=== PATIENT | male | born 1940 | race Caucasian/White ===

== ENCOUNTER 2017-04-20 14:00 | Emergency (ER) | payer OTHER ==
[~2017-04-20] VITALS: Ht 170.2 cm; Wt 101.0 kg
[~2017-04-20 14:00] MED LIST: ATOR-24 PO; CHOL100010 PO; CHOL20009 PO; CYCL10TA6 PO; FRRS300 PO; HYDC25 PO; OXYB5TAB74 PO; POTA1080 PO; PRT40 PO
[2017-04-20 14:15] VITALS: TEMP 36.6; Ht 170.2 cm; Wt 101.0 kg
[2017-04-20] MEDS ORDERED: MoRPHine SULFATE 10 MG/ML CARP/VIAL IM STA (14:27)
[2017-04-20] MEDS ORDERED: ONDANSETRON 4MG OD TAB PO STA (14:27)
[2017-04-20] MEDS ORDERED: DOXY50CA26 PO (14:41)
[2017-04-20] MEDS ORDERED: GLV/100 PO (14:41)
[2017-04-20] MEDS ORDERED: FURO-85 PO (14:41)
[2017-04-20] MEDS ORDERED: CETI10TA84 PO (14:41)
[2017-04-20] MEDS ORDERED: POTA540T PO (14:41)
[2017-04-20] MEDS ORDERED: HYDR25TA4 PO (14:41)
[2017-04-20] MEDS ORDERED: ASPI81TA28 PO (14:41)
[2017-04-20] MEDS ORDERED: CHOL1TAB76 PO (14:41)
[2017-04-20] MEDS ORDERED: CYAN100020 PO (14:42)
[2017-04-20] MEDS ORDERED: PRLSR20 PO (14:43)
[2017-04-20] MEDS ORDERED: FERR1TAB23 PO (14:44)
--- NOTE | 2017-04-20 15:03 | DIAGNOSTIC IMAGING REPORT ---
R WRIST MIN 3 VIEWS ROUTINE HISTORY: 76 years-old Male R wrist pain s/p fall acute right-sided wrist pain status post fall. COMPARISON: None available TECHNIQUE: 4 views of the right wrist FINDINGS: Acute comminuted slightly impacted fracture of the distal radius is noted with intra-articular extension into the radiocarpal and distal radioulnar joints. There is 7 mm dorsal displacement of the impacted fracture fragments and 3 mm volar displacement. Additionally, there is an acute comminuted nondisplaced fracture involving the ulnar styloid. Moderate soft tissue swelling about the wrist. Background osteopenia is noted with severe triscaphe and first carpometacarpal osteoarthritis. IMPRESSION: 1. Acute comminuted impacted and mildly displaced intra-articular fracture of the distal radius with moderate associated soft tissue swelling. 2. Acute comminuted nondisplaced fracture of the ulnar styloid. The above report was generated using voice recognition software. It may contain grammatical, syntax or spelling errors. Electronically signed by: Ayad Luna M.D. 04/20/2017 3:01 PM Dictated Date/Time: 04/20/2017 2:58 PM
--- NOTE | 2017-04-20 15:46 | DIAGNOSTIC IMAGING REPORT ---
RIGHT HUMERUS 2 VIEWS CLINICAL HISTORY: Fall with right arm pain. FINDINGS: AP and lateral views of the right humerus are obtained. No prior studies are available for comparison at the time of dictation. The skeletal structures are osteopenic. There is no radiographic evidence of right humeral fracture. The shoulder and elbow joints are grossly maintained. The overlying soft tissues are normal in appearance. A splint is noted in the partially imaged right forearm. IMPRESSION: Osteopenia with no radiographic evidence of right humeral fracture. Electronically signed by: Dustin Figueroa M.D. 04/20/2017 3:44 PM Dictated Date/Time: 04/20/2017 3:43 PM
--- NOTE | 2017-04-20 15:50 | EMERGENCY ROOM VISIT NOTE ---
ED Visit Note First contact with patient: 14:17 I did evaluate and examine this patient myself. I did guide management for the patient. I agree with the APC's assessment as discussed. Please see the APC's dictation for further details. I did independently review the x-rays. He does have a right wrist fracture. He is neurovascularly intact. He was placed in a splint and will follow with orthopedics.
[2017-04-20] MEDS ORDERED: OXYCODONE HCL IR 5 MG TAB (IMMEDIATE RELEASE) PO STA (15:58)
[2017-04-20] MEDS ORDERED: OXYC1TAB3 PO (16:07)
[2017-04-20 16:35] VITALS: BP 146/83; PULSE 57; O2SAT 99
--- NOTE | 2017-04-20 21:00 | EMERGENCY ROOM VISIT NOTE ---
History First contact with patient: 14:17 Chief Complaint: WRIST PAIN Stated Complaint: BROKEN WRIST History of Present Illness The patient is a 76 year old male who presents to the Emergency Room with complaints of right wrist pain and swelling, along with mild right shoulder pain. The patient reports that he was picking grapes when his left foot got tangled in a support post, causing him to lose his balance when he turned. The patient reports falling onto his right side. He complains mostly of right wrist pain and swelling. He does report mild right elbow and right shoulder pain, but does not want any further workup for these injuries. He denies hitting his head, neck pain or back pain. The patient rates his discomfort an 8 out of 10. The patient is [id number], and denies any prior history of right wrist fractures. Review of Systems 10 system review was performed and was negative except for pertinent positives and negatives as indicated in history of present illness Past Medical/Surgical History Medical Problems: (1) Calculus of ureter (2) Hx of prostatic malignancy (3) Hypertrophy (benign) of prostate (4) Symptomatic anemia Family History Cancer Hypertension Social History Smoking Status: Never Smoker Alcohol Use: none Drug Use: none Marital Status: Housing Status: lives with family Occupation Status: employed Current/Historical Medications Scheduled Aspirin (Aspirin Ec), 81 MG PO DAILY Atorvastatin (Lipitor), 40 MG PO DAILY Cetirizine (Zyrtec), 10 MG PO DAILY Cholecalciferol (D 2000), 2,000 UNITS PO DAILY Cyanocobalamin (Vitamin B12), 1,000 MCG PO DAILY Doxycycline (Monohydrate) (Doxycycline), 50 MG PO 2XWK Ferrous Sulfate (Iron), 325 MG PO DAILY Furosemide (Lasix), 20 MG PO DAILY Hydrochlorothiazide (Hctz), 25 MG PO DAILY Imatinib Mesylate (Gleevec), 400 MG PO DAILY Omeprazole (Prilosec), 20 MG PO DAILY Oxybutynin Chloride (Ditropan), 5 MG PO DAILY Potassium Citrate (Alkalinizer (Potassium Citrate), 1,080 MG PO DAILY Scheduled PRN Oxycodone Ir (Roxicodone Ir), 1-2 TAB PO Q4H PRN for Pain Physical Exam Vital Signs Date Time Temp Pulse Resp B/P (MAP) Pulse Ox O2 Delivery O2 Flow Rate FiO2 04/20/17 16:35 57 20 146/83 99 10/2/17 14:15 36.6 68 16 155/75 98 Room Air Physical Exam CONSTITUTIONAL: Healthy and well nourished. Alert and oriented X 3 with positive affect. Patient appears in moderate discomfort from pain. HEENT: Normocephalic, atraumatic. Pupils equal, round and reactive. No epistaxis, hemotympanum or subconjunctival hemorrhage. NECK: Full active range of motion without discomfort. RESPIRATORY: Clear to auscultation bilaterally with no wheezing, crackles, rhonchi or stridor. CARDIOVASCULAR: Regular rate and rhythm with no murmurs, rubs or gallops. MUSCULOSKELETAL: Examination shows edema of the volar wrist region. No open wounds noted. The patient has tenderness to palpation through the distal radius and ulnar region. He has no tenderness to palpation about the elbow, and has full flexion and extension without pain. Examination of the right shoulder does not show any focal tenderness over the distal clavicle, acromioclavicular joint or shoulder region. Distal pulses are intact. INTEGUMENTARY: No rash or other significant dermatologic conditions noted. NEUROLOGIC: Right hand and fingers are sensory intact. Medical Decision & Procedures ER Provider Diagnostic Interpretation: My interpretation of right wrist x-rays shows a comminuted and intra-articular distal radius fracture, with associated ulnar styloid fracture. Radiologist report is as follows: R WRIST MIN 3 VIEWS ROUTINE HISTORY: 76 years-old Male R wrist pain s/p fall acute right-sided wrist pain status post fall. COMPARISON: None available TECHNIQUE: 4 views of the right wrist FINDINGS: Acute comminuted slightly impacted fracture of the distal radius is noted with intra-articular extension into the radiocarpal and distal radioulnar joints. There is 7 mm dorsal displacement of the impacted fracture fragments and 3 mm volar displacement. Additionally, there is an acute comminuted nondisplaced fracture involving the ulnar styloid. Moderate soft tissue swelling about the wrist. Background osteopenia is noted with severe triscaphe and first carpometacarpal osteoarthritis. IMPRESSION: 1. Acute comminuted impacted and mildly displaced intra-articular fracture of the distal radius with moderate associated soft tissue swelling. 2. Acute comminuted nondisplaced fracture of the ulnar styloid. My interpretation of right humerus x-rays does not show any additional fractures or dislocations/subluxations about the shoulder or elbow region. Radiologist report is as follows: RIGHT HUMERUS 2 VIEWS CLINICAL HISTORY: Fall with right arm pain. FINDINGS: AP and lateral views of the right humerus are obtained. No prior studies are available for comparison at the time of dictation. The skeletal structures are osteopenic. There is no radiographic evidence of right humeral fracture. The shoulder and elbow joints are grossly maintained. The overlying soft tissues are normal in appearance. A splint is noted in the partially imaged right forearm. IMPRESSION: Osteopenia with no radiographic evidence of right humeral fracture. Medications Administered Medications (Trade) Dose Ordered Sig/Kay Route Start Time Stop Time Status Last Admin Dose Admin Morphine Sulfate (MoRPHine SULFATE INJ) 8 mg NOW STAT IM 04/20/17 14:27 04/20/17 14:28 DC 04/20/17 14:27 8 MG Ondansetron HCl (Zofran Odt) 4 mg NOW STAT PO 04/20/17 14:27 04/20/17 14:28 DC 04/20/17 14:27 4 MG Oxycodone HCl (Roxicodone Immediate Rel Tab) 5 mg NOW STAT PO 04/20/17 15:58 04/20/17 16:01 DC 04/20/17 16:30 5 MG ED Course Patient history and physical exam were performed. Nurse's notes were reviewed. Vital signs were reviewed and were normal. Patient was administered IM morphine and oral Zofran ODT for pain. X-rays of the right wrist shows a comminuted and intra-articular fracture of the distal radius, with associated nondisplaced comminuted fracture of the ulnar styloid. The patient still continued to complain of pain, but felt that his pain was secondary to movement of the arm. A volar Ortho-Glass splint was applied. Neurovascular check after splint placement was normal. The patient then requested an x-ray of his upper arm, which was also performed and was normal. An arm sling was applied. The patient was encouraged to intermittently apply ice and elevate the wrist for swelling and pain. He was encouraged to alternate ibuprofen and Tylenol for baseline pain relief. He did receive a prescription for OxyIR as needed for worse pain. He was warned about sedation and constipation while taking this medication. The patient and report that they will contact [facility] for further reevaluation and management. The patient voiced understanding of all discharge instructions, and rated his discomfort a 4 out of 10 at the conclusion of my exam. The patient was also seen and examined by Dr. Elmore, ED attending physician, who agrees with workup and plan of care. Medical Decision [place] Drug Monitoring Program Search Results: patient reviewed within database, no issues identified Medication Reconcilliation Current Medication List: was personally reviewed by me Blood Pressure Screening Patient's blood pressure: Normal blood pressure Impression Primary Impression: Closed fracture of right wrist Additional Impressions: Muscle strain of right upper arm Fall from slip, trip, or stumble Departure Information Prescriptions Oxycodone Ir (Roxicodone Ir) 5 Mg Tab 1-2 TAB PO Q4H Y for Pain, #15 TAB For Initial Treatment Prov: Arun Campo PA 04/20/17 Referrals Johnnie Le M.D. (PCP) Patient Instructions My [facility] Problem Qualifiers Primary Impression: Closed fracture of right wrist Encounter type: initial encounter Qualified Codes: S62.101A - Fracture of unspecified carpal bone, right wrist, initial encounter for closed fracture Additional Impressions: Muscle strain of right upper arm Encounter type: initial encounter Qualified Codes: S46.911A - Strain of unspecified muscle, fascia and tendon at shoulder and upper arm level, right arm , initial encounter Fall from slip, trip, or stumble Encounter type: initial encounter Qualified Codes: W01.0XXA - Fall on same level from slipping, tripping and stumbling without subsequent striking against object, initial encounter
== END 2017-04-20 16:35 | disposition home or self-care (01) ==
LOC: C.EDB 14:01 → C.EDD 16:35
DX: S52.571A Other intraarticular fracture of lower end of right radius, initial encounter for closed fracture (principal); S52.611A Displaced fracture of right ulna styloid process, initial encounter for closed fracture; S46.911A Strain of unspecified muscle, fascia and tendon at shoulder and upper arm level, right arm, initial encounter; W01.0XXA Fall on same level from slipping, tripping and stumbling without subsequent striking against object, initial encounter; Y93.89 Activity, other specified; Z87.442 Personal history of urinary calculi; Z85.46 Personal history of malignant neoplasm of prostate; N40.0 Benign prostatic hyperplasia without lower urinary tract symptoms; D64.9 Anemia, unspecified; Z80.9 Family history of malignant neoplasm, unspecified; Z82.49 Family history of ischemic heart disease and other diseases of the circulatory system; Z79.82 Long term (current) use of aspirin; Z79.899 Other long term (current) drug therapy

== ENCOUNTER 2019-07-08 01:01 | Inpatient (IN) ==
[2019-07-08] MEDS ORDERED: SODIUM CHLORIDE 0.9% 500 ML IV SCH (01:15)
[2019-07-08 01:31] LABS: Basophils # (auto) 0.01 K/uL (0-0.2); Basophils % (auto) 0.2 %; Eosinophils % (auto) 2.5 %; Hematocrit (blood only) 37.4 % (42-52); Hemoglobin 12.4 g/dL (14.0-18.0); Lymphocytes # (auto) 0.75 K/uL (1.2-3.4); Lymphocytes % (auto) 18.6 %; Mean Corpuscular Hgb Conc 33.2 g/dL (32-36); Mean Corpuscular Volume 99.5 fL (80-100); Mean Platelet Volume 9.7 fL (7.4-10.4); Monocytes # (auto) 0.38 K/uL (0.11-0.59); Monocytes % (auto) 9.4 %; Neutrophils # (auto) 2.79 K/uL (1.4-6.5); Neutrophils % (auto) 69.3 %; Platelet Count 237 K/uL (130-400); RDW Coefficient of Variation 13.9 % (11.5-14.5); RDW Standard Deviation 50.7 fL (36.4-46.3); Red Blood Count 3.76 M/uL (4.7-6.1); White Blood Count 4.03 K/uL (4.8-10.8)
[2019-07-08 01:32] LABS: iSTAT Creatinine 1.2 mg/dl (0.6-1.3); iSTAT Hemoglobin 12.6 g/dl (14.0-18.0); iSTAT Ionized Calcium 1.22 mmol/l (1.12-1.32); iSTAT Potassium 4.2 mEq/L (3.3-5.0)
[2019-07-08 01:54] LABS: Alanine Aminotransferase 34 U/L (12-78); Albumin Level 3.8 gm/dl (3.4-5.0); Aspartate Aminotransferase 28 U/L (15-37); BUN Creatinine Ratio 14.6 (10-20); Blood Urea Nitrogen 19 mg/dl (7-18); Calcium 8.7 mg/dl (8.5-10.1); Carbon Dioxide 28 mmol/L (21-32); Chloride 112 mmol/L (98-107); Creatinine Clr Calc Pharmacy 51.8 ml/min; Est GFR (African American) 60.7; Est GFR (Non-African American) 52.4; Glucose 103 mg/dl (70-99); Magnesium 2.2 mg/dl (1.8-2.4); Potassium 4.2 mmol/L (3.5-5.1); Sodium 141 mmol/L (136-145)
[2019-07-08 01:59] LABS: Albumin Globulin Ratio 1.1 (0.9-2); Alkaline Phosphatase 89 U/L (45-117); Bilirubin,Total 0.3 mg/dl (0.2-1); Globulin 3.5 gm/dl (2.5-4.0); Total Protein 7.3 gm/dl (6.4-8.2)
--- NOTE | 2019-07-08 02:06 | Emergency Department Note ---
Entered by Taqueria Cain acting as a scribe for Jake Kennedy DO History of Present Illness General Chief complaint: Dizziness Stated complaint: DIZZY,PASSED OUT Time Seen by Provider: 07/08/19 01:14 Source: patient History of Present Illness Onset (ago): hour(s) (3.5) Location: head Pain Consistency: + other (episode) Quality: + other (possible syncope episode) Associated symptoms: + shortness of breath and + other (+bump on right jainism; +lightheadedness -weakness; -numbness; -changes in vision ) The patient is a 79 year old female, with past medical history of anemia, who presents to the Emergency Room with complaints of an episode of a possible syncope that occurred 3.5 hours ago. The patient reports he was sitting on a chair when the patient thinks he may have gotten up too fast. He states he either lost his balance or passed out upon standing up, but the patient can not remember specifically. The patient notes he hit his right jainism due to the fall. He notes he only lost consciousness for a couple seconds. The patient states he felt lightheaded prior to the possible syncope episode, and he states he felt lightheaded afterwards as well. The patient also notes he has felt short of breath. The patient denies change in vision, weakness or numbness. He notes he recently started taking eye drops. The patient reports he takes aspirin, but he denies taking any other blood thinners. Home Medications Home Medications Medication Instructions Recorded Confirmed Type S/P Cataract Surgery Eye Drops 1 drp OPB DAILY 07/08/19 07/08/19 History aspirin 81 mg PO DAILY 07/08/19 07/08/19 History atorvastatin 40 mg PO DAILY 07/08/19 07/08/19 History cholecalciferol (vitamin D3) 2,000 unit PO DAILY 07/08/19 07/08/19 History [Vitamin D3] cyanocobalamin (vitamin B-12) 1,000 mcg PO DAILY 07/08/19 07/08/19 History furosemide 20 mg PO DAILY 07/08/19 07/08/19 History imatinib 400 mg PO . ON HOLD 07/08/19 07/08/19 History ketoconazole 1 applic TOPICAL [id number] 07/08/19 07/08/19 History omeprazole 20 mg PO DAILY 07/08/19 07/08/19 History potassium citrate 1,080 mg PO DAILY 07/08/19 07/08/19 History Allergies Allergy/AdvReac Type Severity Reaction Status Date / Time No Known Allergies Allergy Unverified 07/08/19 02:11 Past Med/Surg History Medical History Anemia (Acute) Calculus of ureter Closed fracture of right wrist (Acute) Fall from slip, trip, or stumble (Acute) Hx of prostatic malignancy Hypertrophy (benign) of prostate Muscle strain of right upper arm (Acute) Symptomatic anemia Family History Other No significant family history Social History Preferred Language: Pashto Communication Ability: Effective Special Equipment Technician Required: No Beliefs That Will Affect Care: None Current Living Situation: Spouse Feels Safe at Home: Yes Safety Concerns: Feels Safe At This Time Smoking Status: Former smoker Hx Alcohol Use: Yes Alcohol type: beer Hx Substance Use: No Review of Systems See HPI for pertinent positives & negatives. and A total of 10 systems reviewed and were otherwise negative Physical Exam Vital Signs Vital Signs - 24 hr 07/08/19 01:03 07/08/19 01:36 07/08/19 01:45 Temperature 36.7 C Temperature Source Oral Pulse Rate 38 L Pulse Rate [Finger] 34 L 35 L Respiratory Rate 16 20 18 Respiratory Effort / Characteristics Non-Labored Spontaneous Respiratory Depth Normal Blood Pressure 142/61 H Blood Pressure [Right Arm] 132/52 L 128/56 L Blood Pressure Mean 88 Blood Pressure Mean [Right Arm] 78 80 Pulse Oximetry 97 97 98 Oxygen Delivery Method Room Air Room Air Room Air Sepsis Recent Fever Within 48 Hours No Sepsis Action Taken by Nursing No Action Required 07/08/19 02:00 07/08/19 02:30 Temperature Temperature Source Pulse Rate Pulse Rate [Finger] 32 L 32 L Respiratory Rate 18 18 Respiratory Effort / Characteristics Respiratory Depth Blood Pressure Blood Pressure [Right Arm] 121/54 L 134/54 L Blood Pressure Mean Blood Pressure Mean [Right Arm] 76 80 Pulse Oximetry 98 98 Oxygen Delivery Method Room Air Room Air Sepsis Recent Fever Within 48 Hours Sepsis Action Taken by Nursing GENERAL: laying in bed, ill-appearing, disheveled EYE EXAM: normal conjunctiva, PERRL and EOM's intact OROPHARYNX: no exudate, no erythema, lips, buccal mucosa, and tongue normal and mucous membranes are moist NECK: supple, no nuchal rigidity, no adenopathy, non-tender LUNGS: Clear to auscultation. Normal chest wall mechanics HEART: Bradycardic rate. No murmurs, S1 normal and S2 normal ABDOMEN: abdomen soft, non-tender, normo-active bowel sounds, no masses, no rebound or guarding. BACK: Back is symmetrical on inspection and there is no deformity, no midline tenderness, no CVA tenderness. SKIN: no rashes and no bruising UPPER EXTREMITIES: upper extremities are grossly normal. LOWER EXTREMITIES: No pitting edema. NEURO EXAM: Normal sensorium, cranial nerves II-XII intact, normal speech, no weakness of arms, no weakness of legs. No drift. Finger to nose intact. Gross sensation intact. Course Course ED COURSE: Vital signs were reviewed and showed hypertensive and bradycardia. The patients medical record was reviewed The above diagnostic studies were performed and reviewed. ED treatments and interventions as stated above. 0110: The patient was evaluated in room B1. A complete history and physical exam ination was performed. 0146: I discussed the patient's case with Dr. العلي-Lois Waldron. Dr. العلي will further evaluate the patient. 0150: I updated the patient on his case. The patient reports he is doing well. Based on the patients age, coexisting illnesses, exam and lab findings the decision to treat as an inpatient was made. The patient remained stable while under my care. The patient will be evaluated for further management. Consultations Consultation #1: I discussed the patient's case with Dr. العلي-Lois Waldron. Dr. العلي will further evaluate the patient. Time: 01:46 Administered Medications Aspirin (Ecotrin Ectab) 81 mg PO DAILY [facility] Stop: 08/07/19 08:59 Last Admin: 07/08/19 08:32 Dose: 81 mg Documented by: [id number] Atorvastatin Calcium (Lipitor) 40 mg PO DAILY [facility] Stop: 08/07/19 08:59 Last Admin: 07/08/19 08:33 Dose: 40 mg Documented by: [id number] Cyanocobalamin (Vitamin B-12) 1,000 mcg PO DAILY [facility] Stop: 08/07/19 08:59 Last Admin: 07/08/19 08:33 Dose: 1,000 mcg Documented by: [id number] Lisinopril (Zestril) 2.5 mg PO QAM [facility] Stop: 08/07/19 04:24 Last Admin: 07/08/19 04:41 Dose: 2.5 mg Documented by: [id number] Miscellaneous (Order Awaiting Action) 1 ea N/A QS [facility] Stop: 08/07/19 04:29 Last Admin: 07/08/19 17:33 Dose: Not Given Documented by: [id number] Admin: 07/08/19 08:32 Dose: Not Given Documented by: [id number] Admin: 07/08/19 04:35 Dose: Not Given Documented by: [id number] Pantoprazole Sodium (Protonix) 40 mg PO DAILY [facility] Stop: 08/07/19 08:59 Last Admin: 07/08/19 08:33 Dose: 40 mg Documented by: [id number] Discontinued Medications Bacitracin (Bacitracin) Confirm Administered Dose 50,000 units .ROUTE .STK-MED ONE Stop: 07/08/19 13:38 Last Admin: 07/08/19 14:33 Dose: 50,000 units Documented by: [id number] Bupivacaine HCl (Sensorcaine 0.25% Inj) Confirm Administered Dose 30 ml .ROUTE .STK-MED ONE Stop: 07/08/19 13:37 Last Admin: 07/08/19 14:33 Dose: 30 ml Documented by: [id number] Cefazolin Sodium (Ancef) Confirm Administered Dose 2,000 mg .ROUTE .STK-MED ONE Stop: 07/08/19 13:59 Last Admin: 07/08/19 14:33 Dose: 2,000 mg Documented by: [id number] Fentanyl Citrate (Fentanyl Citrate) Confirm Administered Dose 100 mcg .ROUTE .STK-MED ONE Stop: 07/08/19 13:58 Last Admin: 07/08/19 15:35 Dose: 100 mcg Documented by: [id number] Fentanyl Citrate (Fentanyl Citrate) Confirm Administered Dose 100 mcg .ROUTE .STK-MED ONE Stop: 07/08/19 15:57 Last Increment: 07/08/19 16:31 Dose: 50 mcg Documented by: [id number] Hydralazine HCl (Hydralazine Hcl) Confirm Administered Dose 20 mg .ROUTE .STK- MED ONE Stop: 07/08/19 15:07 Last Admin: 07/08/19 15:17 Dose: 20 mg Documented by: [id number] Sodium Chloride (Nss) 500 mls @ 999 mls/hr IV .Q31M [facility] Stop: 07/08/19 01:45 Last Infusion: 07/08/19 02:05 Dose: 0 mls/hr Documented by: [id number] Admin: 07/08/19 01:34 Dose: 999 mls/hr Documented by: [id number] Sodium Chloride (1/2 Nss) 1,000 mls @ 50 mls/hr IV .Q20H [facility] Stop: 08/07/19 03:45 Last Infusion: 07/08/19 17:34 Dose: 0 mls/hr Documented by: [id number] Admin: 07/08/19 04:34 Dose: 50 mls/hr Documented by: [id number] Cefazolin Sodium (Ancef 2000mg) 2,000 mg in 15 mls @ 3.75 mls/min IV Q8 ONE Stop: 07/08/19 20:03 Last Admin: 07/08/19 20:22 Dose: 3.75 mls/min Documented by: [id number] Lidocaine HCl (Xylocaine 1% (Local)) Confirm Administered Dose 20 ml .ROUTE .STK-MED ONE Stop: 07/08/19 13:37 Last Admin: 07/08/19 14:33 Dose: 20 ml Documented by: [id number] Lorazepam (Ativan) 0.25 mg PO NOW STA Stop: 07/08/19 05:00 Last Admin: 07/08/19 08:55 Dose: Not Given Documented by: [id number] Midazolam HCl (Versed) Confirm Administered Dose 5 mg .ROUTE .STK-MED ONE Stop: 07/08/19 13:58 Last Admin: 07/08/19 16:31 Dose: 5 mg Documented by: [id number] Midazolam HCl (Versed) Confirm Administered Dose 2 mg .ROUTE .STK-MED ONE Stop: 07/08/19 16:22 Last Admin: 07/08/19 16:32 Dose: Not Given Documented by: [id number] Perflutren Lipid Microsphere (Definity) 2 ml IV ONCE ONE Stop: 07/08/19 07:09 Last Admin: 07/08/19 07:09 Dose: 2 ml Documented by: [id number] Sterile Water (Sterile Water Inj) Confirm Administered Dose 20 ml .ROUTE .StockTwits- MED ONE Stop: 07/08/19 13:59 Last Admin: 07/08/19 14:33 Dose: 20 ml Documented by: [id number] Critical Care Time Critical Care Time: Yes Total Critical Care Time: 35 I have personally spent 35 minutes of critical care time in the direct management of this patient. This includes bedside care, interpretation of diagnostic studies, and testing, discussion with consultants, patient, and family members, and other required patient management activities. This 35 minutes is in excess of all separately billable procedures. Medical Decision Making Differential Diagnosis Differential diagnosis includes etiologies such as vasovagal event, infection, hypoglycemia, electrolyte abnormalities, cardiac sources, intracerebral event, toxicologic, neurologic, Mobitz Type 2 block, as well as others were entertained. Medical Records Attestation: I reviewed the patient's medical records. Home Medications Current Medication List: was personally reviewed by me Laboratory Data Attestation: I reviewed the patient's lab results. Result diagrams: 07/08/19 01:17 07/08/19 01:17 Lab Results 07/08/19 07/08/19 07/08/19 Range/Units 01:16 01:17 01:17 WBC 4.03 L (4.8-10.8) K/uL RBC 3.76 L (4.7-6.1) M/uL Hgb 12.4 L (14.0-18.0) g/dL POC Hgb 12.6 L (14.0-18.0) g/dl Hct 37.4 L (42-52) % POC Hct 37 L (42-52) % MCV 99.5 (80-100) fL MCH 33.0 (25-34) pg MCHC 33.2 (32-36) g/dL RDW Std Deviation 50.7 H (36.4-46.3) fL RDW Coeff of Gila 13.9 (11.5-14.5) % Plt Count 237 (130-400) K/uL MPV 9.7 (7.4-10.4) fL Immature Gran % (Auto) 0.0 % Neut % (Auto) 69.3 % Lymph % (Auto) 18.6 % [place] % (Auto) 9.4 % Eos % (Auto) 2.5 % Baso % (Auto) 0.2 % Immature Gran # (Auto) 0.00 (0.00-0.02) K/uL Neut # (Auto) 2.79 (1.4-6.5) K/uL Lymph # (Auto) 0.75 L (1.2-3.4) K/uL [place] # (Auto) 0.38 (0.11-0.59) K/uL Eos # (Auto) 0.10 (0-0.5) K/uL Baso # (Auto) 0.01 (0-0.2) K/uL POC Sodium 142 (135-144) mEq/L Sodium 141 (136-145) mmol/L POC Potassium 4.2 (3.3-5.0) mEq/L Potassium 4.2 (3.5-5.1) mmol/L POC Chloride 109 (101-112) mEq/L Chloride 112 H (98-107) mmol/L Carbon Dioxide 28 (21-32) mmol/L POC Total CO2 24 (24-31) mEq/l Anion Gap 1.0 L (3-11) POC Anion Gap 15.0 L (16-25) mmol/L POC BUN 18 (7-18) mg/dl BUN 19 H (7-18) mg/dl Creatinine 1.29 (0.6-1.4) mg/dl POC Creatinine 1.2 (0.6-1.3) mg/dl Est Cr Clr Drug Dosing 51.8 ml/min Est GFR ( Amer) 60.7 Est GFR (Non-Af Amer) 52.4 BUN/Creatinine Ratio 14.6 (10-20) Glucose 103 H (70-99) mg/dl POC Glucose (other) 103 H (70-99) mg/dl Calcium 8.7 (8.5-10.1) mg/dl POC Ioniz Calcium Irma 1.22 (1.12-1.32) mmol/l Magnesium 2.2 (1.8-2.4) mg/dl Total Bilirubin 0.3 (0.2-1) mg/dl AST 28 (15-37) U/L ALT 34 (12-78) U/L Alkaline Phosphatase 89 (45-117) U/L Troponin I < 0.015 (0-0.045) ng/ml NT-Pro-B Natriuret Pep 121 (0-1800) pg/ml Total Protein 7.3 (6.4-8.2) gm/dl Albumin 3.8 (3.4-5.0) gm/dl Globulin 3.5 (2.5-4.0) gm/dl Albumin/Globulin Ratio 1.1 (0.9-2) TSH 2.520 (0.300-4.500) uIu/ml Urine Color Urine Appearance (Clear) Urine pH (4.5-7.5) Ur Specific Melvin (1.000-1.030) Urine Protein (Negative) Urine Glucose (UA) (Negative) Urine Ketones (Negative) Urine Blood (Negative) Urine Nitrite (Negative) Urine Bilirubin (Negative) Urine Urobilinogen (Negative) Ur Leukocyte Esterase (Negative) Urine WBC (Auto) (0-5) /hpf Urine RBC (Auto) (0-4) /hpf U Hyaline Cast (Auto) (0-5) /lpf U Epithel Cells (Auto) (0-5) /lpf Urine Bacteria (Auto) (Negative) Lyme Disease IgG Ab (Negative) Lyme Disease IgM Ab (Negative) 07/08/19 07/08/19 Range/Units 01:17 03:00 WBC (4.8-10.8) K/uL RBC (4.7-6.1) M/uL Hgb (14.0-18.0) g/dL POC Hgb (14.0-18.0) g/dl Hct (42-52) % POC Hct (42-52) % MCV (80-100) fL MCH (25-34) pg MCHC (32-36) g/dL RDW Std Deviation (36.4-46.3) fL RDW Coeff of Gila (11.5-14.5) % Plt Count (130-400) K/uL MPV (7.4-10.4) fL Immature Gran % (Auto) % Neut % (Auto) % Lymph % (Auto) % [place] % (Auto) % Eos % (Auto) % Baso % (Auto) % Immature Gran # (Auto) (0.00-0.02) K/uL Neut # (Auto) (1.4-6.5) K/uL Lymph # (Auto) (1.2-3.4) K/uL [place] # (Auto) (0.11-0.59) K/uL Eos # (Auto) (0-0.5) K/uL Baso # (Auto) (0-0.2) K/uL POC Sodium (135-144) mEq/L Sodium (136-145) mmol/L POC Potassium (3.3-5.0) mEq/L Potassium (3.5-5.1) mmol/L POC Chloride (101-112) mEq/L Chloride (98-107) mmol/L Carbon Dioxide (21-32) mmol/L POC Total CO2 (24-31) mEq/l Anion Gap (3-11) POC Anion Gap (16-25) mmol/L POC BUN (7-18) mg/dl BUN (7-18) mg/dl Creatinine (0.6-1.4) mg/dl POC Creatinine (0.6-1.3) mg/dl Est Cr Clr Drug Dosing ml/min Est GFR ( Amer) Est GFR (Non-Af Amer) BUN/Creatinine Ratio (10-20) Glucose (70-99) mg/dl POC Glucose (other) (70-99) mg/dl Calcium (8.5-10.1) mg/dl POC Ioniz Calcium Irma (1.12-1.32) mmol/l Magnesium (1.8-2.4) mg/dl Total Bilirubin (0.2-1) mg/dl AST (15-37) U/L ALT (12-78) U/L Alkaline Phosphatase (45-117) U/L Troponin I (0-0.045) ng/ml NT-Pro-B Natriuret Pep (0-1800) pg/ml Total Protein (6.4-8.2) gm/dl Albumin (3.4-5.0) gm/dl Globulin (2.5-4.0) gm/dl Albumin/Globulin Ratio (0.9-2) TSH (0.300-4.500) uIu/ml Urine Color Yellow Urine Appearance Clear (Clear) Urine pH 5.5 (4.5-7.5) Ur Specific Melvin 1.019 (1.000-1.030) Urine Protein 1+ H (Negative) Urine Glucose (UA) Negative (Negative) Urine Ketones Trace H (Negative) Urine Blood Negative (Negative) Urine Nitrite Negative (Negative) Urine Bilirubin Negative (Negative) Urine Urobilinogen Negative (Negative) Ur Leukocyte Esterase Negative (Negative) Urine WBC (Auto) 1-5 (0-5) /hpf Urine RBC (Auto) 0-4 (0-4) /hpf U Hyaline Cast (Auto) 1-5 (0-5) /lpf U Epithel Cells (Auto) 5-10 H (0-5) /lpf Urine Bacteria (Auto) Negative (Negative) Lyme Disease IgG Ab Negative (Negative) Lyme Disease IgM Ab Negative (Negative) Imaging Data My Impression: HEAD CT NONCONTRAST CT DOSE: 655.73 mGy.cm HISTORY: syncope TECHNIQUE: Multiaxial CT images of the head were performed without the use of intravenous contrast. Automated exposure control was utilized for this study. A dose lowering technique was utilized adhering to the principles of ALARA. Comparison: None. Findings: Dense opacification of the right frontal sinus and right f rontoethmoidal recess. Small right mastoid effusion. The calvarium and skull base are intact. There is no mass, hematoma, midline shift, acute infarct. White matter hypodensity is nonspecific but suggestive of microvascular ischemic change. The ventricles and sulci demonstrate mild age-related involutional changes. Impression: 1. No acute intracranial abnormality. 2. 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 Electronically signed by: Steffen Ly M.D. 07/08/2019 7:06 AM Portable AP Upright 1 View: Large cardiac silhouette. No focal infiltrate. No pneumothorax. Linear line just lateral to right mediastinum consistent with pacer pad. CT head/brain w/o contrast: No acute bleed. ECG Data Attestation: I personally reviewed and interpreted this ECG as follows: Indication: + syncope Rate (beats per minute): 34 Rhythm: + sinus bradycardia ECG Intervals/blocks: + Mobitz Type II and + Right Bundle branch block ECG [place]: + Left axis deviation ECG ST segments: + T-wave inversions (Inferior) and + Nonspecific ST abnormalities (lateral) Blood Pressure Blood Pressure Findings: Elevated blood pressure Blood Pressure Disposition: further management by hospitalist Head Trauma GCS Score: 15 MDM Narrative Patient is a 79-year-old male who presents the ER following a syncopal episode. He notes he felt dizzy and lightheaded since about 10 PM last night. He has no weakness or numbness in his arms or legs. He had a syncopal episode while getting up and passed out. He notes he was out for several seconds. He does have some exertional shortness of breath as well. He notes he takes no rate limiting medications. IV was established blood work was obtained. I was called emergently to B 1/trauma bay. Upon arrival he was found to be bradycardic with a heart rate in the low 30s. Cardiac monitoring/rhythm strip was reviewed and showed Mobitz 2 heart rate of 31. Trop neg. Labs show mild leukopenia. No significant anemia. BMP along with LFTs bilirubin was unremarkable. Patient was taking the CT, CT of his head was negative per my read. No cervical spine tenderness. Chest x-ray is not significantly changed from previous and per my interpretation showed a large cardiac silhouette but no focal infiltrate. Patient was given a small bolus of IV fluids. Defibrillator pads were placed and he was monitored closely throughout the stay in the ER. He was discussed with the hospitalist and patient family were updated bedside. He will be admitted to the ER with bradycardia secondary to Mobitz 2 heart block symptomatic with syncope and dizziness. Impression & Plan AV block, Mobitz II, Anemia, Cardiac syncope, Bradycardia with 31-40 beats per minute Discharge Plan Visit Data *Final* Discharge Date/Time: 07/08/19 03:19 Chief Complaint: Dizziness Stated Complaint: DIZZY,PASSED OUT ED Provider: Jake Kennedy Discharge Problem: AV block, Mobitz II, Anemia, Cardiac syncope, Bradycardia with 31-40 beats per minute Patient Disposition: Admitted As Inpatient Discharge Instructions Interventions: ED Discharge Assessment Last Done: 07/08/19 03:19 Discharge Problem: Anemia Qualifiers: Anemia type: unspecified type Qualified Code(s): D64.9 - Anemia, unspecified The scribe's documentation has been prepared under my direction and personally reviewed by me in its entirety. I confirm that the note above accurately reflects all work, treatment, procedures, and medical decision making performed by me.
[2019-07-08 02:09] LABS: NT Pro B Type Natriuretic Pept 121 pg/ml (0-1800); Troponin I < 0.015 ng/ml (0-0.045)
--- NOTE | 2019-07-08 03:00 | History & Physical Report ---
Date of Service July 08, 2019 Assessment & Plan (1) Symptomatic bradycardia: hypertension, slight elevated malignant GIST status surgery, Gleevec tx currently on hold after recent cataract surgery prostate cancer sp radiation chronic anemia, hemoglobin at baseline Past tobacco abuse PCU External pacer pads on TTE, Cardiology consult RE symptomatic bradycardia Monitor blood pressure, initiate lisinopril if uncontrolled DVT prophylaxis. Lovenox subcu Full code Patient's requesting updates from providers. Ms. aHley White, contact #[phone]. History of Present Illness Chief Complaint: Passed out Primary Care Provider: Johnnie Le MD History obtained from patient, family, and records. 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 Recent confinement June 2015 for symptomatic anemia. Last night patient noted dizziness symptoms described as lightheadedness which led to transient Blackout episode causing patient to fall down. Was not out for long as per patient. Some head trauma post fall. No chest pain. Some shortness of breath. No cough symptoms. Noted to have second-degree AV block Mobitz type II on the monitor. MEDICAL HISTORY: As above. SURGERIES: Urologic procedures, orthopedic surgery, partial laparoscopic gastrectomy, recent cataract surgery FAMILY HISTORY: Dementia, breast cancer, hypertension, stroke PERSONAL AND SOCIAL HISTORY: Past tobacco abuse. No chronic intake of alcoholic beverages. Retired store warehouse associate. Allergies Allergy/AdvReac Type Severity Reaction Status Date / Time No Known Allergies Allergy Unverified 07/08/19 02:11 Home Medications Home Medications Medication Instructions Recorded Confirmed Type S/P Cataract Surgery Eye Drops 1 drp OPB DAILY 07/08/19 07/08/19 History aspirin 81 mg PO DAILY 07/08/19 07/08/19 History atorvastatin 40 mg PO DAILY 07/08/19 07/08/19 History cholecalciferol (vitamin D3) 2,000 unit PO DAILY 07/08/19 07/08/19 History [Vitamin D3] cyanocobalamin (vitamin B-12) 1,000 mcg PO DAILY 07/08/19 07/08/19 History furosemide 20 mg PO DAILY 07/08/19 07/08/19 History imatinib 400 mg PO . ON HOLD 07/08/19 07/08/19 History ketoconazole 1 applic TOPICAL 3XWK 07/08/19 07/08/19 History omeprazole 20 mg PO DAILY 07/08/19 07/08/19 History potassium citrate 1,080 mg PO DAILY 07/08/19 07/08/19 History Past Med/Surg History Medical History Anemia (Acute) Calculus of ureter Closed fracture of right wrist (Acute) Fall from slip, trip, or stumble (Acute) Hx of prostatic malignancy Hypertrophy (benign) of prostate Muscle strain of right upper arm (Acute) Symptomatic anemia Family History Other No significant family history Social History Preferred Language: Cameroonian Communication Ability: Effective Digital Archivist Required: No Beliefs That Will Affect Care: None Current Living Situation: Spouse Feels Safe at Home: Yes Safety Concerns: Feels Safe At This Time Smoking Status: Former smoker Hx Alcohol Use: Yes Alcohol type: beer Hx Substance Use: No Review of Systems Review of Systems: As per HPI, all 10 systems reviewed, all other ROS negative Physical Exam Physical Exam: GENERAL: Comfortable, obese, slightly anxious, no respiratory distress SKIN: Pallor , warm HEENT: Pale palpebral conjunctivae, no ptosis, dry buccal mucosa NECK : Supple, short neck, no tenderness CHEST : CTA, no tenderness HEART : Bradycardic , no obvious murmurs ABDOMEN: Some distention, nontender EXTREMITIES : No LE swelling/tenderness, no other conspicuous deformities noted NEUROLOGIC : Coherent, no facial asymmetry, no other gross focality Results & Data Vital Signs (Past 12 Hours) Vital Signs Temp Pulse Pulse Resp BP BP Pulse Ox 07/08/19 02:30 32 L 18 134/54 L 98 07/08/19 02:00 32 L 18 121/54 L 98 07/08/19 01:45 35 L 18 128/56 L 98 07/08/19 01:36 34 L 20 132/52 L 97 07/08/19 01:03 36.7 C 38 L 16 142/61 H 97 Laboratory Results Laboratory Results WBC 4.03 K/uL (4.8-10.8) L 07/08/19 01:17 RBC 3.76 M/uL (4.7-6.1) L 07/08/19 01:17 Hgb 12.4 g/dL (14.0-18.0) L 07/08/19 01:17 POC Hgb 12.6 g/dl (14.0-18.0) L 07/08/19 01:16 Hct 37.4 % (42-52) L 07/08/19 01:17 POC Hct 37 % (42-52) L 07/08/19 01:16 MCV 99.5 fL (80-100) 07/08/19 01:17 MCH 33.0 pg (25-34) 07/08/19 01:17 MCHC 33.2 g/dL (32-36) 07/08/19 01:17 RDW Std Deviation 50.7 fL (36.4-46.3) H 07/08/19 01:17 RDW Coeff of Gila 13.9 % (11.5-14.5) 07/08/19 01:17 Plt Count 237 K/uL (130-400) 07/08/19 01:17 MPV 9.7 fL (7.4-10.4) 07/08/19 01:17 Immature Gran % (Auto) 0.0 % 07/08/19 01:17 Neut % (Auto) 69.3 % 07/08/19 01:17 Lymph % (Auto) 18.6 % 07/08/19 01:17 [place] % (Auto) 9.4 % 07/08/19 01:17 Eos % (Auto) 2.5 % 07/08/19 01:17 Baso % (Auto) 0.2 % 07/08/19 01:17 Immature Gran # (Auto) 0.00 K/uL (0.00-0.02) 07/08/19 01:17 Neut # (Auto) 2.79 K/uL (1.4-6.5) 07/08/19 01:17 Lymph # (Auto) 0.75 K/uL (1.2-3.4) L 07/08/19 01:17 [place] # (Auto) 0.38 K/uL (0.11-0.59) 07/08/19 01:17 Eos # (Auto) 0.10 K/uL (0-0.5) 07/08/19 01:17 Baso # (Auto) 0.01 K/uL (0-0.2) 07/08/19 01:17 POC Sodium 142 mEq/L (135-144) 07/08/19 01:16 Sodium 141 mmol/L (136-145) 07/08/19 01:17 POC Potassium 4.2 mEq/L (3.3-5.0) 07/08/19 01:16 Potassium 4.2 mmol/L (3.5-5.1) 07/08/19 01:17 POC Chloride 109 mEq/L (101-112) 07/08/19 01:16 Chloride 112 mmol/L (98-107) H 07/08/19 01:17 Carbon Dioxide 28 mmol/L (21-32) 07/08/19 01:17 POC Total CO2 24 mEq/l (24-31) 07/08/19 01:16 Anion Gap 1.0 (3-11) L 07/08/19 01:17 POC Anion Gap 15.0 mmol/L (16-25) L 07/08/19 01:16 POC BUN 18 mg/dl (7-18) 07/08/19 01:16 BUN 19 mg/dl (7-18) H 07/08/19 01:17 Creatinine 1.29 mg/dl (0.6-1.4) 07/08/19 01:17 POC Creatinine 1.2 mg/dl (0.6-1.3) 07/08/19 01:16 Est Cr Clr Drug Dosing 51.8 ml/min 07/08/19 01:17 Est GFR ( Amer) 60.7 07/08/19 01:17 Est GFR (Non-Af Amer) 52.4 07/08/19 01:17 BUN/Creatinine Ratio 14.6 (10-20) 07/08/19 01:17 Glucose 103 mg/dl (70-99) H 07/08/19 01:17 POC Glucose (other) 103 mg/dl (70-99) H 07/08/19 01:16 Calcium 8.7 mg/dl (8.5-10.1) 07/08/19 01:17 POC Ioniz Calcium Irma 1.22 mmol/l (1.12-1.32) 07/08/19 01:16 Magnesium 2.2 mg/dl (1.8-2.4) 07/08/19 01:17 Total Bilirubin 0.3 mg/dl (0.2-1) 07/08/19 01:17 AST 28 U/L (15-37) 07/08/19 01:17 ALT 34 U/L (12-78) 07/08/19 01:17 Alkaline Phosphatase 89 U/L (45-117) 07/08/19 01:17 Troponin I < 0.015 ng/ml (0-0.045) 07/08/19 01:17 NT-Pro-B Natriuret Pep 121 pg/ml (0-1800) 07/08/19 01:17 Total Protein 7.3 gm/dl (6.4-8.2) 07/08/19 01:17 Albumin 3.8 gm/dl (3.4-5.0) 07/08/19 01:17 Globulin 3.5 gm/dl (2.5-4.0) 07/08/19 01:17 Albumin/Globulin Ratio 1.1 (0.9-2) 07/08/19 01:17 TSH 2.520 uIu/ml (0.300-4.500) 07/08/19 01:[address] head initial read: No acute intracranial process. Volume loss and chronic microvascular ischemic changes. Chronic right frontal sinus. Small right mastoid effusion. Chest x-ray as per my dictation cardiomegaly, interstitial congestion EKG as per my interpretation : Rate 35, 2AVB Mobitz type II, RBBB, LAD, LAFB, T wave flattening anterolateral leads
[2019-07-08 03:20] LABS: Appearance Urine Clear (Clear); Bacteria Urine Automated Negative (Negative); Bilirubin Urine Negative (Negative); Blood Urine Negative (Negative); Color Urine Yellow; Glucose Urine UA Negative (Negative); Ketones Urine Trace (Negative); Leukocyte Esterase Urine Negative (Negative); Nitrite Urine Negative (Negative); Protein Urine 1+ (Negative); RBC Urine Automated 0-4 /hpf (0-4); Specific Gravity Urine 1.019 (1.000-1.030); Urobilinogen Urine Negative (Negative); pH Urine 5.5 (4.5-7.5)
[2019-07-08 03:46] LABS: Lyme Ab IgG w/WB Rflx Negative (Negative); Lyme Ab IgM w/WB Rflx Negative (Negative)
[2019-07-08] MEDS ORDERED: ACETAMINOPHEN 325 MG TAB PO PRN ×2 (03:46→16:45)
[2019-07-08] MEDS ORDERED: PROMETHAZINE HCL 12.5 MG in SODIUM CHLORIDE 0.9% 50 ML IV PRN (03:46)
[2019-07-08] MEDS ORDERED: NITROGLYCERIN SL 0.4 MG/TAB TAB SL PRN (03:46)
[2019-07-08] MEDS ORDERED: TRAMADOL HCL 50 MG TABLET PO PRN (03:46)
[2019-07-08] MEDS ORDERED: SODIUM CHLORIDE 0.45 % 1,000 ML IV SCH (03:46)
[2019-07-08] MEDS ORDERED: LORazepam 0.5 MG TAB PO STA (04:59)
[2019-07-08] MEDS ORDERED: ATROPINE SULFATE 0.1 MG/ML 5ML SYR IV PRN (07:07)
--- NOTE | 2019-07-08 07:07 | CT Scan Report ---
HEAD CT NONCONTRAST CT DOSE: 655.73 mGy.cm HISTORY: syncope TECHNIQUE: Multiaxial CT images of the head were performed without the use of intravenous contrast. A utomated exposure control was utilized for this study. A dose lowering technique was utilized adheri ng to the principles of ALARA. Comparison: None. Findings: Dense opacification of the right frontal sinus and right frontoethmoidal recess. Small righ t mastoid effusion. The calvarium and skull base are intact. There is no mass, hematoma, midline shif t, acute infarct. White matter hypodensity is nonspecific but suggestive of microvascular ischemic ch cheli. The ventricles and sulci demonstrate mild age-related involutional changes. Impression: 1. No acute intracranial abnormality. 2. 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 ACT 112: Negative or not required by law. Electronically signed by: Steffen Ly M.D. 07/08/2019 7:06 AM
[2019-07-08] MEDS ORDERED: PERFLUTREN LIPID MICROSPHERE (DEFINITY) IV ONE (07:08)
--- NOTE | 2019-07-08 07:31 | XRay Report ---
SINGLE VIEW CHEST CLINICAL HISTORY: Syncope. FINDINGS: An AP, portable, upright chest radiograph is compared to study dated 07/19/2015. The examin ation is degraded by portable technique and patient rotation. The heart is enlarged noting atheroscle rotic calcification of the thoracic aorta. The pulmonary vasculature is noncongested. Chronic interst itial thickening is similar to previous. No airspace consolidation or large pleural effusion is ident ified. Atelectasis is noted at the lung bases. No pneumothorax is seen. The skeletal structures are o steopenic. The bony thorax is grossly intact. IMPRESSION: Cardiomegaly with no active disease in the chest. ACT 112: Negative or not required by law. Electronically signed by: Dustin Figueroa M.D. 07/08/2019 7:30 AM
[2019-07-08] MEDS: ASPIRIN 81 MG ECTAB PO SCH (08:32)
[2019-07-08] MEDS: PANTOprazole 40 MG TAB PO SCH (08:33)
[2019-07-08] MEDS: ATORVASTATIN 40 MG TAB PO SCH (08:33)
[2019-07-08] MEDS: CYANOCOBALAMIN 500 MCG TABLET (VITAMIN B-12) PO SCH (08:33)
[2019-07-08] MEDS ORDERED: ENOXAPARIN INJ 30 MG/0.3 ML SYR SQ SCH (09:00)
--- NOTE | 2019-07-08 10:40 | Cardiology Consultation ---
Date of Consultation July 08, 2019 Assessment & Plan (1) AV block, Mobitz II: Symptomatic with syncopal event. The pathophysiology and treatment options were discussed with the patient and his by phone. They were counseled that I believe the most prudent course of action at this point would be for dual-chamber permanent pacemaker placement likely with pacing at the His bundle. They both state that they understand and are in agreement with the plan. They are very familiar with Dr. Antunez and wished to proceed with placement today. The patient will remain n.p.o. (2) History of gastrointestinal stromal neoplasm: Stable without active disease History of Present Illness Reason for Consultation: Syncope in the setting of Mobitz II AV Block Requesting Physician: Dr. Lyman Attending Physician: Mariluz Lyman, DO History of Present Illness It was my pleasure to see Mr. Berumen in consultation today July 08, 2019. He is a very pleasant 79-year-old gentleman who does not routinely follow with a flight manager. He presented to [facility] on the evening of 07/07 after syncopal event. He states that he was in his normal state of health yesterday and was actually active putting a new oven into his house. In the evening he stood up from his couch after resting comfortably to go and change his clothes. After standing up he states that he got lightheaded and blacked out. This was a witnessed event and his did see him fall back into the chair and he did bump his head on the table. He was only unconscious for a few seconds but very lightheaded after coming to. He then remained lightheaded for the rest of the evening and was concerned that he might pass out again as brought him into the emergency department. Upon arrival to the emergency department he was found to be bradycardic and in 2-1 AV block and was admitted to telemetry with external pacemaker pads in place. Luckily he remained asymptomatic at rest and pacing was not necessary. He is not on any outpatient AV ravi blocking agents. He denies any tick bites and does not spend time in the cid. Otherwise he is been in his normal state of health recently. He does have a history of gastrointestinal stromal tumor status post resection in 2016. No sign of active disease by follow-up with Dr. Fountain in March of this year. Allergies Allergy/AdvReac Type Severity Reaction Status Date / Time No Known Allergies Allergy Unverified 07/08/19 02:11 Home Medications Home Medications Medication Instructions Recorded Confirmed Type S/P Cataract Surgery Eye Drops 1 drp OPB DAILY 07/08/19 07/08/19 History aspirin 81 mg PO DAILY 07/08/19 07/08/19 History atorvastatin 40 mg PO DAILY 07/08/19 07/08/19 History cholecalciferol (vitamin D3) 2,000 unit PO DAILY 07/08/19 07/08/19 History [Vitamin D3] cyanocobalamin (vitamin B-12) 1,000 mcg PO DAILY 07/08/19 07/08/19 History furosemide 20 mg PO DAILY 07/08/19 07/08/19 History imatinib 400 mg PO . ON HOLD 07/08/19 07/08/19 History ketoconazole 1 applic TOPICAL 3XWK 07/08/19 07/08/19 History omeprazole 20 mg PO DAILY 07/08/19 07/08/19 History potassium citrate 1,080 mg PO DAILY 07/08/19 07/08/19 History Patient History Medical History Anemia (Acute) Calculus of ureter Closed fracture of right wrist (Acute) Fall from slip, trip, or stumble (Acute) Hx of prostatic malignancy Hypertrophy (benign) of prostate Muscle strain of right upper arm (Acute) Symptomatic anemia Family History Other No significant family history Social History Preferred Language: Macedonian Communication Ability: Effective Silk Opener Required: No Beliefs That Will Affect Care: None Current Living Situation: Spouse Feels Safe at Home: Yes Safety Concerns: Feels Safe At This Time Smoking Status: Former smoker Hx Alcohol Use: Yes Alcohol type: beer Hx Substance Use: No Review of Systems Review of Systems: All systems reviewed & are unremarkable except as noted in HPI & below Physical Exam Physical Exam: General: Awake, alert and oriented x 3. No acute distress. HEENT: Normocephalic, atraumatic. Pupils equal, round and reactive to light and accommodation. Extraocular muscles are intact. Anicteric sclera. Moist mucous membranes. Neck: No JVD. No bruit. Cardiovascular: Regular but slow. Positive S-4. Normal S-1 and S-2. No S-3. No murmurs or rubs. Pulmonary: Clear to auscultation B/L. No rales, rhonchi or wheezing Abdomen: Bowel sounds x 4, soft. No rebound, guarding or tenderness. No organomegaly. Extremities: No clubbing, cyanosis or edema. +2 pedal pulses bilaterally. Skin: Warm and dry. Results & Data Vital Signs (Past 12 Hours) Vital Signs Temp Pulse Pulse Resp BP BP Pulse Ox 07/08/19 07:49 36.5 C 44 L 18 158/69 H 97 07/08/19 03:29 36.9 C 32 L 18 160/66 H 99 07/08/19 03:10 30 L 18 132/48 L 97 07/08/19 02:30 32 L 18 134/54 L 98 07/08/19 02:00 32 L 18 121/54 L 98 07/08/19 01:45 35 L 18 128/56 L 98 07/08/19 01:36 34 L 20 132/52 L 97 07/08/19 01:03 36.7 C 38 L 16 142/61 H 97 Laboratory Results Laboratory Results - last 24 hr 07/08/19 07/08/19 07/08/19 01:16 01:17 01:17 WBC 4.03 L RBC 3.76 L Hgb 12.4 L POC Hgb 12.6 L Hct 37.4 L POC Hct 37 L MCV 99.5 MCH 33.0 MCHC 33.2 RDW Std Deviation 50.7 H RDW Coeff of [place] 13.9 Plt Count 237 MPV 9.7 Immature Gran % (Auto) 0.0 Neut % (Auto) 69.3 Lymph % (Auto) 18.6 [place] % (Auto) 9.4 Eos % (Auto) 2.5 Baso % (Auto) 0.2 Immature Gran # (Auto) 0.00 Neut # (Auto) 2.79 Lymph # (Auto) 0.75 L [place] # (Auto) 0.38 Eos # (Auto) 0.10 Baso # (Auto) 0.01 POC Sodium 142 Sodium 141 POC Potassium 4.2 Potassium 4.2 POC Chloride 109 Chloride 112 H Carbon Dioxide 28 POC Total CO2 24 Anion Gap 1.0 L POC Anion Gap 15.0 L POC BUN 18 BUN 19 H Creatinine 1.29 POC Creatinine 1.2 Est Cr Clr Drug Dosing 51.8 Est GFR ( Amer) 60.7 Est GFR (Non-Af Amer) 52.4 BUN/Creatinine Ratio 14.6 Glucose 103 H POC Glucose (other) 103 H Calcium 8.7 POC Ioniz Calcium Irma 1.22 Magnesium 2.2 Total Bilirubin 0.3 AST 28 ALT 34 Alkaline Phosphatase 89 Troponin I < 0.015 NT-Pro-B Natriuret Pep 121 Total Protein 7.3 Albumin 3.8 Globulin 3.5 Albumin/Globulin Ratio 1.1 TSH 2.520 Urine Color Urine Appearance Urine pH Ur Specific [place] Urine Protein Urine Glucose (UA) Urine Ketones Urine Blood Urine Nitrite Urine Bilirubin Urine Urobilinogen Ur Leukocyte Esterase Urine WBC (Auto) Urine RBC (Auto) U Hyaline Cast (Auto) U Epithel Cells (Auto) Urine Bacteria (Auto) Lyme Disease IgG Ab Lyme Disease IgM Ab 07/08/19 07/08/19 01:17 03:00 WBC RBC Hgb POC Hgb Hct POC Hct MCV MCH MCHC RDW Std Deviation RDW Coeff of [place] Plt Count MPV Immature Gran % (Auto) Neut % (Auto) Lymph % (Auto) [place] % (Auto) Eos % (Auto) Baso % (Auto) Immature Gran # (Auto) Neut # (Auto) Lymph # (Auto) [place] # (Auto) Eos # (Auto) Baso # (Auto) POC Sodium Sodium POC Potassium Potassium POC Chloride Chloride Carbon Dioxide POC Total CO2 Anion Gap POC Anion Gap POC BUN BUN Creatinine POC Creatinine Est Cr Clr Drug Dosing Est GFR ( Amer) Est GFR (Non-Af Amer) BUN/Creatinine Ratio Glucose POC Glucose (other) Calcium POC Ioniz Calcium Irma Magnesium Total Bilirubin AST ALT Alkaline Phosphatase Troponin I NT-Pro-B Natriuret Pep Total Protein Albumin Globulin Albumin/Globulin Ratio TSH Urine Color Yellow Urine Appearance Clear Urine pH 5.5 Ur Specific [place] 1.019 Urine Protein 1+ H Urine Glucose (UA) Negative Urine Ketones Trace H Urine Blood Negative Urine Nitrite Negative Urine Bilirubin Negative Urine Urobilinogen Negative Ur Leukocyte Esterase Negative Urine WBC (Auto) 1-5 Urine RBC (Auto) 0-4 U Hyaline Cast (Auto) 1-5 U Epithel Cells (Auto) 5-10 H Urine Bacteria (Auto) Negative Lyme Disease IgG Ab Negative Lyme Disease IgM Ab Negative Medications Administered Current Inpatient Medications Acetaminophen (Tylenol) 650 mg PO Q4H PRN PRN Reason: Pain or Fever Stop: 08/07/19 03:45 Aspirin (Ecotrin Ectab) 81 mg PO DAILY [facility] Stop: 08/07/19 08:59 Last Admin: 07/08/19 08:32 Dose: 81 mg Documented by: Atorvastatin Calcium (Lipitor) 40 mg PO DAILY [facility] Stop: 08/07/19 08:59 Last Admin: 07/08/19 08:33 Dose: 40 mg Documented by: Atropine Sulfate (Atropine Sulfate) 0.5 mg IV Q3M PRN PRN Reason: symptomatic bradycardia Stop: 08/07/19 07:06 Cyanocobalamin (Vitamin B-12) 1,000 mcg PO DAILY [facility] Stop: 08/07/19 08:59 Last Admin: 07/08/19 08:33 Dose: 1,000 mcg Documented by: Enoxaparin Sodium (Lovenox) 30 mg SQ QAM [facility] Stop: 08/07/19 08:59 Sodium Chloride (1/2 Nss) 1,000 mls @ 50 mls/hr IV .Q20H [facility] Stop: 08/07/19 03:45 Last Admin: 07/08/19 04:34 Dose: 50 mls/hr Documented by: Promethazine HCl 12.5 mg/ (Sodium Chloride) 50.5 mls @ 202 mls/hr IV Q6H PRN PRN Reason: Nausea And Vomiting Stop: 08/07/19 03:45 Lisinopril (Zestril) 2.5 mg PO QAM [facility] Stop: 08/07/19 04:24 Last Admin: 07/08/19 04:41 Dose: 2.5 mg Documented by: Miscellaneous (Order Awaiting Action) 1 ea N/A QS [facility] Stop: 08/07/19 04:29 Last Admin: 07/08/19 08:32 Dose: Not Given Documented by: Nitroglycerin (Nitrostat) 0.4 mg SL UD PRN PRN Reason: Chest Pain Stop: 08/07/19 03:45 Pantoprazole Sodium (Protonix) 40 mg PO DAILY [facility] Stop: 08/07/19 08:59 Last Admin: 07/08/19 08:33 Dose: 40 mg Documented by: Tramadol HCl (Ultram) 25 mg PO Q4H PRN PRN Reason: Pain Stop: 08/07/19 03:45
[2019-07-08] MEDS ORDERED: LIDOCAINE HCL 1% 20 ML VIAL ONE (13:36)
[2019-07-08] MEDS ORDERED: BUPIVACAINE 0.25% 30 ML VIAL ONE (13:36)
[2019-07-08] MEDS ORDERED: BACITRACIN INJ 50,000 UNIT VIAL ONE (13:37)
--- NOTE | 2019-07-08 13:39 | History & Physical Bridge Note ---
Date of Service July 08, 2019 History & Physical Bridge Note I have examined the patient, reviewed the History & Physical and in the interval since the performance of the History & Physical I have noted the following changes of clinical significance: pt with symptomatic 2:1 AV block for a HIS bundle ppm
--- NOTE | 2019-07-08 13:40 | Pre Anesthesia Assessment ---
Date of Service July 08, 2019 Pre Sedation Assessment Vital Signs Temp Pulse Pulse Resp BP BP Pulse Ox 07/08/19 12:06 36.7 C 48 L 18 165/82 H 97 07/08/19 07:49 36.5 C 44 L 18 158/69 H 97 07/08/19 03:29 36.9 C 32 L 18 160/66 H 99 07/08/19 03:10 30 L 18 132/48 L 97 07/08/19 02:30 32 L 18 134/54 L 98 07/08/19 02:00 32 L 18 121/54 L 98 07/08/19 01:45 35 L 18 128/56 L 98 07/08/19 01:36 34 L 20 132/52 L 97 07/08/19 01:03 36.7 C 38 L 16 142/61 H 97 Cardiovascular + bradycardic Respiratory normal respiratory effort, lungs clear to auscultation Pre-Sedation Airway Assessment Smoking Status: Former smoker Hx Sleep Apnea: No Hx Difficult Intubation: No Short, Thick Neck: Yes Thyromental Distance: < 3.5 Finger Breadths Oral Cavity: + Dentures Mallampati Class: II ASA: ASA3 NPO Status Date of Last Intake of Fluids: 07/07/19 Date of Last Intake of Solid Food: 07/07/19 Procedure Planning Contraindications for Sedation: none Current Medications Reviewed: Yes Notes The planned sedation has been discussed with the patient. Informed Consent was obtained. I have identified the patient, determined the appropriateness of sedation and have assessed the patient immediately prior to the procedure. All medicine(s) and interventions are by my order.
[2019-07-08] MEDS ORDERED: MIDAZOLAM HCL 5 MG/ML 1 ML VIAL ONE (13:57)
[2019-07-08] MEDS ORDERED: fentaNYL citrate 100 MCG/2 ML VIAL ONE ×2 (13:57→15:56)
[2019-07-08] MEDS ORDERED: CEFAZOLIN 250 MG/ML 1 GM VIAL ONE (13:58)
[2019-07-08] MEDS ORDERED: WATER, STERILE FOR INJ 10 ML VIAL ONE (13:58)
[2019-07-08] MEDS ORDERED: HydrALAZINE HCL 20 MG/ML VIAL ONE (15:06)
[2019-07-08] MEDS ORDERED: MIDAZOLAM HCL 1 MG/ML 2ML VIAL ONE (16:21)
--- NOTE | 2019-07-08 16:42 | Hospitalist Progress Note ---
Date of Service July 08, 2019 Assessment & Plan (1) AV block, Mobitz II: symptomatic braadycardia on arrival. s/p pacemaker placement today by EP. Recover overnight with possible DC in am. AM CXR ordered. (2) GIST (gastrointestinal stromal tumor), malignant: s/p surgery. Holding Gleevec as outpatient prior to arrival. Resume per Oncologist. Cont PPI therapy that he is on as outpatient. (3) CKD (chronic kidney disease), stage III: at baseline, cont to avoid nephrotoxic substances. (4) HTN (hypertension): lisinopril 2.5mg daily started on arrival and BP is closer to goal. Will discuss this further with the patient who will need close follow-up with PCP one week after dc for monitoring of this and adjustments of medications as needed. Low salt diet. (5) DVT prophylaxis: Lovenox Full Code Dispo-to home when cleared by Cardiology Mariluz Lyman DO [facility] Hospitalist Subjective doing well post operatively denies nausea or pain in room no other issues at this time Review of Systems Review of Systems: All systems reviewed & are unremarkable except as noted in HPI & below Physical Exam Physical Exam: CONSTITUTIONAL: WNWD, vitals as above, generally well- appearing EYES: normal conjunctivae, no scleral icterus ENT: MMM NECK: trachea midline RESPIRATORY: clear to auscultation bilaterally, no crackles, rales or wheezes, normal respiratory effort CARDIOVASCULAR: regular rate and rhythm, S1 and 2 heard without murmurs, gallops or rubs, no JVD, no peripheral edema CHEST: pacemaker in place with dressing covering wound-left anterior chest wall GASTROINTESTINAL: normal bowel sounds, soft, nontender, nondistended MUSCULOSKELETAL: strength 5/5 throughout, head is normocephalic and atraumatic SKIN: warm and dry, post op incision site as above. NEUROLOGIC: CN 2-12 grossly intact, normal cognition, normal speech, no gross focal deficits. PSYCHIATRIC: alert cooperative and oriented to person, place and time. Results & Data Vital Signs (Past 12 Hours) Vital Signs Temp Pulse Resp BP Pulse Ox 07/08/19 12:06 36.7 C 48 L 18 165/82 H 97 07/08/19 07:49 36.5 C 44 L 18 158/69 H 97 Laboratory Results Short CBC 07/08/19 Range/Units 01:17 WBC 4.03 L (4.8-10.8) K/uL Hgb 12.4 L (14.0-18.0) g/dL Hct 37.4 L (42-52) % Plt Count 237 (130-400) K/uL BMP 07/08/19 01:17 Sodium 141 Potassium 4.2 Chloride 112 H Carbon Dioxide 28 BUN 19 H Creatinine 1.29 Glucose 103 H Calcium 8.7 Cardiac Enzymes 07/08/19 Range/Units 01:17 Troponin I < 0.015 (0-0.045) ng/ml Liver Function 07/08/19 Range/Units 01:17 Total Bilirubin 0.3 (0.2-1) mg/dl AST 28 (15-37) U/L ALT 34 (12-78) U/L Alkaline Phosphatase 89 (45-117) U/L Albumin 3.8 (3.4-5.0) gm/dl Urine 07/08/19 Range/Units 03:00 Urine Color Yellow Urine Appearance Clear (Clear) Urine pH 5.5 (4.5-7.5) Ur Specific [place] 1.019 (1.000-1.030) Urine Protein 1+ H (Negative) Urine Glucose (UA) Negative (Negative) Medications Administered Current Inpatient Medications Acetaminophen (Tylenol) 650 mg PO Q4H PRN PRN Reason: Pain or Fever Stop: 08/07/19 03:45 Aspirin (Ecotrin Ectab) 81 mg PO DAILY [facility] Stop: 08/07/19 08:59 Last Admin: 07/08/19 08:32 Dose: 81 mg Documented by: Atorvastatin Calcium (Lipitor) 40 mg PO DAILY [facility] Stop: 08/07/19 08:59 Last Admin: 07/08/19 08:33 Dose: 40 mg Documented by: Atropine Sulfate (Atropine Sulfate) 0.5 mg IV Q3M PRN PRN Reason: symptomatic bradycardia Stop: 08/07/19 07:06 Cyanocobalamin (Vitamin B-12) 1,000 mcg PO DAILY [facility] Stop: 08/07/19 08:59 Last Admin: 07/08/19 08:33 Dose: 1,000 mcg Documented by: Enoxaparin Sodium (Lovenox) 30 mg SQ QAM [facility] Stop: 08/07/19 08:59 Hydralazine HCl (Hydralazine Hcl) 10 mg IV Q6 PRN PRN Reason: elevated BP Stop: 08/07/19 16:57 Sodium Chloride (1/2 Nss) 1,000 mls @ 50 mls/hr IV .Q20H [facility] Stop: 08/07/19 03:45 Last Admin: 07/08/19 04:34 Dose: 50 mls/hr Documented by: Promethazine HCl 12.5 mg/ (Sodium Chloride) 50.5 mls @ 202 mls/hr IV Q6H PRN PRN Reason: Nausea And Vomiting Stop: 08/07/19 03:45 Cefazolin Sodium (Ancef 2000mg) 2,000 mg in 15 mls @ 3.75 mls/min IV Q8 ONE Stop: 07/08/19 20:03 Lisinopril (Zestril) 2.5 mg PO QAM [facility] Stop: 08/07/19 04:24 Last Admin: 07/08/19 04:41 Dose: 2.5 mg Documented by: Miscellaneous (Order Awaiting Action) 1 ea N/A QS [facility] Stop: 08/07/19 04:29 Last Admin: 07/08/19 08:32 Dose: Not Given Documented by: Nitroglycerin (Nitrostat) 0.4 mg SL UD PRN PRN Reason: Chest Pain Stop: 08/07/19 03:45 Oxycodone/Acetaminophen (Percocet 5mg/325mg) 1 - 2 tab PO Q6H PRN PRN Reason: Moderate-Severe Pain Stop: 07/22/19 16:44 Pantoprazole Sodium (Protonix) 40 mg PO DAILY [facility] Stop: 08/07/19 08:59 Last Admin: 07/08/19 08:33 Dose: 40 mg Documented by: Tramadol HCl (Ultram) 25 mg PO Q4H PRN PRN Reason: Pain Stop: 08/07/19 03:45
[2019-07-08] MEDS ORDERED: OXYCODONE/ACETAMINOPHEN 5mg/325mg TAB PO PRN (16:45)
--- NOTE | 2019-07-08 16:53 | Post Anesthesia Assessment ---
Date of Service July 08, 2019 Post Sedation Assessment Vital Signs Temp Pulse Pulse Resp BP BP Pulse Ox 07/08/19 12:06 36.7 C 48 L 18 165/82 H 97 07/08/19 07:49 36.5 C 44 L 18 158/69 H 97 07/08/19 03:29 36.9 C 32 L 18 160/66 H 99 07/08/19 03:10 30 L 18 132/48 L 97 07/08/19 02:30 32 L 18 134/54 L 98 07/08/19 02:00 32 L 18 121/54 L 98 07/08/19 01:45 35 L 18 128/56 L 98 07/08/19 01:36 34 L 20 132/52 L 97 07/08/19 01:03 36.7 C 38 L 16 142/61 H 97 Recovery Score Activity: Moves 4 extremities Respiration: Deep Breath/Cough Circulation: +/-20% PreAnes Value Consciousness: Fully Awake Oxygen Saturation: > 92% On Room Air Post Anesthesia Score: 10 Discharge Sedation Level of Care: Fast Track Phase II Post Sedation Plan On clinical assessment, the patient appears to have tolerated the sedation without complications. Patient is recovering as anticipated. Patient will continue to be monitored by nursing and may be discharged when sedation discharge criteria are met per below protocol. Upon Completions of procedure up to 15 minutes continue every 5 minute vital signs and the P.A.R. score; then discharge to a Phase I or Fast Track to Phase II per the following guidelines: * Discharge Patient to appropriate Phase II area if PAR is 8 or greater or return to pre- procedure baseline. The post - procedure orders will be as directed. * If PAR score is less than 8 or not return to pre-procedure baseline then patient will follow Phase I monitoring till PAR is reached for Phase II. The Phase I may be done in procedure room or may call to secure a Phase I area. * If naloxone or flumazenil are used for reversal, hold in Phase I for continued monitoring from when last reversal dose was given for a minimum of 60 minutes or longer pending the nurse and/or physician discretion of patient condition before discharge to Phase II. Please call the Sedation Physician to re-evaluate and complete post-note for discharge to Phase II area. Do NOT discharge from procedure sedation or Phase 1 until post- sedation evaluation note is complete by procedure /sedation MD Sedation Discharge Instructions to be given to the patient at discharge to home.
--- NOTE | 2019-07-08 16:53 | Operative Report ---
Post Operative Report Pre & Post Diagnosis 2:1 AV block Operation Date: 07/08/19 14:00 <No data on this case meets the specified criteria> I identified the patient and participated in the time-out.: Yes Procedure Operation Date: 07/08/19 14:00 Actual Procedures p Pacer with A/V Leads (Dual) - Reyna Antunez DO s Venogram, Unilateral - Reyna Antunez DO Intracardiac mapping of His Bundle Surgeon Reyna Antunez, DO Rolled Glass Crosscutter none Estimated Blood Loss 25 Findings Consistent with Post-Op Diagnosis Specimens none Description of Procedure see official report I attest to the content of the Intraoperative Record and any orders documented therein. Any exceptions are noted below.
[2019-07-08] MEDS ORDERED: HydrALAZINE HCL 20 MG/ML VIAL IV PRN (16:58)
[2019-07-08] MEDS ORDERED: CEFAZOLIN 2000MG 2,000 MG/15 ML SYR IV ONE (20:00)
--- NOTE | 2019-07-09 07:49 | XRay Report ---
XR chest 2V PA/lateral CLINICAL HISTORY: 79 years-old Male presenting with post implant. TECHNIQUE: PA and lateral views of the chest were obtained. COMPARISON: 07/08/2019. FINDINGS: Left subclavian pacer with leads to the right atrium and an additional lead either in the region of t he tricuspid valve or proximal right ventricle. Atherosclerosis of the aortic arch. Cardiac silhouett e moderately enlarged. Lungs and pleural spaces clear. Degenerative changes of the thoracic spine. Ch olecystectomy clips noted. IMPRESSION: 1. Right ventricular lead terminates proximally either in the region of the tricuspid valve or proxi mal right ventricle. Evaluate for expected functioning of the pacer and expected positioning. 2. Appropriately positioned right atrial lead. 3. Cardiomegaly. 4. No pneumothorax. The report will be called/faxed according to standard departmental protocol. ACT 112: Negative or not required by law. Electronically signed by: Brett Toledo M.D. 07/09/2019 7:47 AM
[2019-07-09] MEDS: ASPIRIN 81 MG ECTAB PO SCH (09:30)
[2019-07-09] MEDS: CYANOCOBALAMIN 500 MCG TABLET (VITAMIN B-12) PO SCH (09:30)
[2019-07-09] MEDS: ATORVASTATIN 40 MG TAB PO SCH (09:30)
[2019-07-09] MEDS: PANTOprazole 40 MG TAB PO SCH (09:31)
[2019-07-09 10:27] LABS: Hematocrit (blood only) 36.4 % (42-52); Hemoglobin 12.1 g/dL (14.0-18.0); Mean Corpuscular Hemoglobin 32.5 pg (25-34); Mean Corpuscular Hgb Conc 33.2 g/dL (32-36); Mean Corpuscular Volume 97.8 fL (80-100); Mean Platelet Volume 9.5 fL (7.4-10.4); Platelet Count 198 K/uL (130-400); RDW Coefficient of Variation 14.1 % (11.5-14.5); RDW Standard Deviation 50.9 fL (36.4-46.3); Red Blood Count 3.72 M/uL (4.7-6.1); White Blood Count 4.91 K/uL (4.8-10.8)
[2019-07-09 10:44] LABS: Calcium 8.7 mg/dl (8.5-10.1); Creatinine Clr Calc Pharmacy 59.8 ml/min; Est GFR (Non-African American) 62.1; Potassium 3.9 mmol/L (3.5-5.1)
--- NOTE | 2019-07-09 11:20 | Cardiology Progress Note ---
Date of Service July 09, 2019 Assessment & Plan (1) AV block, Mobitz II: Symptomatic with syncopal event. successful Dual chamber PPM with His bundle placement on 07/08 some soreness at pocket site but taking tylenol, declining narcotics wires confirmed to be placed appropriately device functioning well my office will call to arrange device check and f/u as outpatient ok to d/c to home from cardiac standpoint (2) History of gastrointestinal stromal neoplasm: Stable without active disease (3) HTN (hypertension): new diagnosis will d/c home with lisinopril 10mg po daily bmp check in 1 week with device check Subjective Pt seen and examined, out of bed in chair states that he is feeling well. Some discomfort at the pocket site however he is received Tylenol with sufficient response. Otherwise his lightheadedness has completely resolved since pacer implantation. And he denies any shortness of breath or palpitations. Telemetry reviewed: AV sequential pacing Review of Systems Review of Systems: All systems reviewed & are unremarkable except as noted in HPI & below Physical Exam Physical Exam: General: Awake, alert and oriented x 3. No acute distress. HEENT: Normocephalic, atraumatic. Pupils equal, round and reactive to light and accommodation. Extraocular muscles are intact. Anicteric sclera. Moist mucous membranes. Neck: No JVD. No bruit. Cardiovascular: Regular. Positive S-4. Normal S-1 and S-2. No S-3. No murmurs or rubs. Pulmonary: Clear to auscultation B/L. No rales, rhonchi or wheezing Abdomen: Bowel sounds x 4, soft. No rebound, guarding or tenderness. No organomegaly. Extremities: No clubbing, cyanosis or edema. +2 pedal pulses bilaterally. Skin: Warm and dry. Results & Data Vital Signs (Past 12 Hours) Vital Signs Temp Pulse Resp BP Pulse Ox 07/09/19 07:59 36.8 C 69 18 144/79 H 100 07/09/19 03:19 37.4 C 76 20 135/69 95
[2019-07-09] MEDS ORDERED: lisinopriL 5 MG TAB PO ONE (12:00)
--- NOTE | 2019-07-09 12:56 | Discharge Summary ---
Date of Service July 09, 2019 Admission HPI Per Admitting Provider History obtained from patient, family, and records. 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 Recent confinement June 2015 for symptomatic anemia. Last night patient noted dizziness symptoms described as lightheadedness which led to transient Blackout episode causing patient to fall down. Was not out for long as per patient. Some head trauma post fall. No chest pain. Some shortness of breath. No cough symptoms. Noted to have second-degree AV block Mobitz type II on the monitor. MEDICAL HISTORY: As above. SURGERIES: Urologic procedures, orthopedic surgery, partial laparoscopic gastrectomy, recent cataract surgery FAMILY HISTORY: Dementia, breast cancer, hypertension, stroke PERSONAL AND SOCIAL HISTORY: Past tobacco abuse. No chronic intake of alcoholic beverages. Retired store operations manager. Admission Exam Per Admitting Provider GENERAL: Comfortable, obese, slightly anxious, no respiratory distress SKIN: Pallor , warm HEENT: Pale palpebral conjunctivae, no ptosis, dry buccal mucosa NECK : Supple, short neck, no tenderness CHEST : CTA, no tenderness HEART : Bradycardic , no obvious murmurs ABDOMEN: Some distention, nontender EXTREMITIES : No LE swelling/tenderness, no other conspicuous deformities noted NEUROLOGIC : Coherent, no facial asymmetry, no other gross focality Principal Diagnosis Second degree Type II AV block causing symptomatic bradycardia s/p pacemaker placement. Hypertension Discharge Data Allergies Allergy/AdvReac Type Severity Reaction Status Date / Time No Known Allergies Allergy Unverified 07/08/19 02:11 Consultations 07/08/19 01:45 ED Decision to Admit Stat 07/08/19 03:46 Consult Cardiology Routine Procedures Performed Operation Date: 07/08/19 14:00 Actual Procedures p Pacer with A/V Leads (Dual) - Reyna Antunez DO s Venogram, Unilateral - Reyna Antunez DO Ordered Studies 07/08/19 01:15 CT head/brain wo con Stat 07/08/19 13:15 EP Lab Images for PACS ONCE Hospital Course (1) AV block, Mobitz II: (2) GIST (gastrointestinal stromal tumor), malignant: (3) CKD (chronic kidney disease), stage III: (4) HTN (hypertension): 79-year-old man was admitted to the hospitalist service with symptomatic bradycardia. An EKG revealed a Mobitz II AV block with 2:1 conduction, and cardiology was consulted. Pacemaker placement was recommended. The patient was status post surgical removal of a malignant GIST tumor with Gleevec treatment currently on hold after recent cataract surgery. He was noted to have chronic anemia and lab work revealed hemoglobin at baseline. The following day a pacemaker was placed and he was recovered on the telemetry floor. He recovered without complications the following day chest x-ray revealed evidence of good lead placement with no evidence of complication such as pneumothorax. At time of discharge she was hemodynamically stable and afebrile and tolerating p.o. He was mentating and ambulating at baseline and close primary care follow-up and cardiology follow-up was recommended. Physical exam revealed a closed, well- healing pacer pocket and a normal heart and lung exam. Of note hypertension was noted and he was discharged home with lisinopril 10 mg daily as a new medication. A basic metabolic panel was recommended within 2 weeks time with follow-up with primary care. Total Time Total Time Spent Total Time Spent (In Minutes): 60 Total Time Includes: Examination of the Patient, Discharge Planning, Medication Reconciliation and Communication With Other Providers Discharge Plan Discharge Items Patient Disposition: Home - Self-Care Reason For Visit: SYMPTOMATIC BRADYCARDIA Discharge Diagnosis: Second degree Type II AV block causing symptomatic bradycardia s/p pacemaker placement. Hypertension Condition on Discharge: Good Health Concerns: New diagnosis of Hypertension Goals: Low sodium diet (<2000 mg sodium daily) Activity: As commented below Activity Comment: do not lift the left elbow over the left shoulder for 1 month Lifting: No more than 10 pounds Lifting Comment: do not lift more than 10 pounds with the left arm for 2 weeks Bathing: Keep incision dry Bathing Comment: keep dressing & incision dry until Sunday 07/15; can shower sat 07/16 Driving/Machine Use: Resume 1 day after discharge Non-emergency contact: Primary Care Provider and Physical Biochemist Call non-emergency contact if: you have any medication questions, your symptoms worsen, your pain is not controlled, your pain is worsening, your pain is unusual for you, your pain is concerning for you and you have a fever Follow-up/Referrals: Johnnie Le MD [Primary Care Provider] - Diet: Low Sodium (2gm) Addtl Attending Provider Instructions: Device and wound check on Sunday 07/15 at [facility] at 10am Keep incision on and dry until after your wound check If you notice any concerns at the device site call Dr. Antunez's office immediately Please follow-up with your primary care physician one week after discharge. Someone from our staff will contact you after the weekend to help set this up. You were started on a new blood pressure medication to take every day. You will need nonfasting bloodwork in two weeks time to monitor your kidney function and electrolytes after starting this new medication. Your primary care physician may order this for you at follow-up. It was a pleasure taking care of you! Please call if you have any questions or problems. You can reach a [facility] hospitalist on duty at [facility] 24 hours a day by calling [phone]. Take care of yourself. Mariluz Lyman, DO [facility]ist Pending Studies at Discharge: No Stand-Alone Forms: My [facility], Smoking Cessation Medications and DC Order Prescriptions: New lisinopril 10 mg Tablet 10 mg PO QAM Qty: 30 RF: 1 tramadol 50 mg tablet 50 mg PO Q6H PRN (Reason: pain) Qty: 20 RF: 0 Continued atorvastatin 40 mg tablet 40 mg PO DAILY RF: 0 potassium citrate 10 mEq (1,080 mg) tablet extended release 1,080 mg PO DAILY RF: 0 omeprazole 20 mg capsule,delayed release(DR/EC) 20 mg PO DAILY RF: 0 furosemide 20 mg tablet 20 mg PO DAILY RF: 0 ketoconazole 2 % shampoo 1 applic TOPICAL 3XWK RF: 0 cyanocobalamin (vitamin B-12) 1,000 mcg Tablet 1,000 mcg PO DAILY RF: 0 aspirin 81 mg Tablet,Delayed Release (Dr/Ec) 81 mg PO DAILY RF: 0 cholecalciferol (vitamin D3) [Vitamin D3] 2,000 unit Tablet 2,000 unit PO DAILY RF: 0 imatinib 400 mg Tablet 400 mg PO . ON HOLD RF: 0 S/P Cataract Surgery Eye Drops 1 drp OPB DAILY RF: 0 Discharge Orders: Discharge Order (Routine); Ordered 07/09/19 Ordered By: aMriluz Lyman Admission Data Admit Date/Time: 07/08/19 03:04 Attending Provider: Mariluz Lyman Admit Provider: Luan العلي Primary Care Provider: Johnnie Le Other Providers: Luan العلي ; Kingsley Crocker Other Interventions: Discharge Summary Assessment (RN) Last Done: 07/09/19 14:58 DC Date/Time DO NOT enter until pt leaves facility: 07/09/19 15:15
[2019-07-10] MEDS ORDERED: lisinopriL 10 MG TAB PO SCH (09:00)
--- NOTE | 2019-07-14 09:41 | Operative Report ---
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 PROCEDURE: Dual chamber rate responsive permanent pacemaker (His bundle) under fluoroscopic guidance along with peripheral venogram and intracardiac electrogram mapping of the His bundle region. SURGEON: Reyna Antunez DO ASSISTANTS: None. ANESTHESIA: Monitored conscious sedation administered under my supervision by Mely Rivera. Start time was 0207, end time 0443. Total of 5 mg of Versed and 150 mcg of fentanyl. INTRAVENOUS FLUIDS: 200 mL. IV CONTRAST: 10 mL. ANTIBIOTICS: Two grams of Ancef. Hydralazine 20 mg. BLOOD LOSS: 25 mL. URINE OUTPUT: Not applicable. SPECIMENS: None. FINDINGS: See below. 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 He was admitted to [facility] secondary to syncope and was found to be in 2:1 AV block, so the pacemaker was recommended. CONSENT: Consent was obtained prior to the patient going into the electrophysiology lab. The patient was informed of risks, benefits and alternative of procedure. Risks include but not limited to sudden cardiac , cardiac arrhythmias, cerebrovascular accident, myocardial infarction, injury to the blood vessels, chamber of the heart, lung, bleeding, and infection. The patient understood these risks and agreed to the procedure as planned. Informed consent was obtained. DESCRIPTION OF THE PROCEDURE: The patient was brought into the electrophysiology lab in a fasting state. He was connected to continuous court recording monitor. A timeout was performed to ensure patient identity and procedure correctly. The patient was prepped and draped over the left infraclavicular space in normal surgical standard fashion. Monitored conscious sedation was given throughout the procedure for patient's comfort level. [place] precautions were maintained throughout the procedure. A 10 mL 1% lidocaine, bupivacaine mixture were given in the left deltopectoral groove. Incision was made in left deltopectoral groove. Blunt dissection was performed down to identify cephalic vein. Cephalic vein was identified and isolated using 0 silk ties. The vein was nicked with 11 blade and a guidewire was inserted without any resistance. An 8-Togolese sheath was inserted over the guidewire and the dilator was removed and a second guidewire was inserted through the 8-Togolese sheath to allow for retained venous access. The sheath was flushed, dilator reinserted over and then was reinserted over one of the guidewires. The guidewire and dilator were removed. Then, the His bundle sheath was advanced into the right atrium over a guidewire. Then, the guidewire and dilator removed and the His lead was advanced and we did intracardiac mapping of the His bundle region. Finding the AH to be 82 milliseconds and HV to be 80 milliseconds. The lead was then screwed in to the His bundle region and there was adequate His bundle pacing with some appropriate sensing. I did not slid the sheaths and then I went to try to do the right atrial lead, but I was unable to really get a sheath into the cephalic vein, so we ultimately did a peripheral venogram using 10 mL of IV contrast diluted in 10 mL of saline followed by 20 mL flush to identify the axillary vein and venous axillary access was obtained and the guidewire was inserted without any resistance. The 8-Togolese sheath was inserted over the guidewire without any resistance. Guidewire and dilator were removed. Then, the right atrial pacing lead was advanced into right atrium. I had a lot of problems positioning the right atrial lead. I ended up having to use a long sheath and then ended up having to use the preformed blue J curve before I finally got it to stay and did not dislodge and had adequate threshold testing. The 8-Togolese sheath was peeled away and lead was fixated to pectoralis muscle using 0 silk suture. Of note, when I was getting axillary venous access, I did hit the axillary artery once the venous pressure and everything was fine. A pacemaker pocket was created using blunt dissection over the pectoralis muscle within the pectoralis fascia. The pocket was flushed with copious amounts of bacitracin saline wash and inspected for hemostasis and the pulse generator was attached to leads, making sure that the pins were in appropriate position, passed set screw and set screws were all tightened. Pulse generator was then placed in the pocket, making sure that the leads were lying flat beneath the device. A stay stitch using 0 silk suture was used to secure this pectoralis muscle. The incision was then closed in 3-layer fashion using 2-0 Vicryl interrupted suture followed by 3-0 Vicryl interrupted suture followed by a 4-0 Monocryl running stitch and Dermabond was applied. EQUIPMENT: The pulse generator is a Medtronic Simón XT followed by Dermabond with a Tegaderm and a micropore dressing. EQUIPMENT: 1. Pulse generator is a Medtronic Simón XT DR VON Puri [id number], serial number [id number]. 2. Right atrial lead Medtronic 5076-52 cm, serial number [id number]. 3. Right ventricular (His lead is a Medtronic 3830-69 cm, serial number [id number]). INTRAOPERATIVE TESTIN. Right atrial lead: P waves 1.6 millivolts, impedance 380 ohms, threshold 0.8 volts at 0.4 milliseconds. 2. His bundle lead impedance 589 ohms, threshold 1 volt at 1 millisecond. FINAL MEASUREMENTS THROUGH THE DEVICE: 1. Right atrial lead: P-wave 2 millivolts, impedance 380 ohms, threshold 0.75 volts at 0.4 milliseconds. 2. His bundle lead is R waves are 1.4 millivolts, impedance 589 ohms, threshold 0.75 volts at 1 millisecond. Again, the intracardiac mapping, AH was 82 milliseconds and the HV was 80 milliseconds. IMPRESSION: Successful implantation of a dual chamber (His bundle rate responsive permanent pacemaker under fluoroscopic guidance along with peripheral venogram and intracardiac electrogram mapping of the His bundle under fluoroscopic guidance). PLAN: Monitor patient overnight, 12-lead ECG, chest x-ray. He is not allowed to lift left elbow or left shoulder for 1 month. He cannot lift more than 10 pounds with the left arm for 2 weeks. He can shower. He is to leave the dressing on and dry for 1 week and he can take the dressing off and shower and he will have a wound check on Thursday07/15/2019 and continue his home medications. I attest to the content of the Intraoperative Record and any orders documented therein. Any exceptions are noted below. MAGGIE
== END 2019-07-09 15:15 | disposition home or self-care (01) | DRG 244 ==
LOC: ED 01:01 → 2S 03:04 → SUATTDRO 03:04 → 2S 03:19

== ENCOUNTER 2022-03-25 09:18 | Observation (INO) ==
--- NOTE | 2022-02-27 09:34 | PAT Medication Instructions ---
Medication Instructions Date of Service February 27, 2022 Home Medications Medication Instructions Recorded tramadol 50 mg tablet 50 mg PO Q6H PRN pain #20 tabs 07/09/19 alfuzosin 10 mg tablet,extended 10 mg PO DAILY #100 tabs 08/29/21 release 24 hr (Uroxatral) potassium citrate 10 mEq (1,080 10 meq PO DAILY #100 tabs 08/29/21 mg) tablet,extended release aspirin 81 mg tablet,delayed release 81 mg PO DAILY atorvastatin 40 mg tablet 40 mg PO QAM cholecalciferol (vitamin D3) 50 mcg (2,000 unit) tablet (Vitamin D3) 2,000 unit PO QAM cyanocobalamin (vitamin B-12) 1,000 mcg tablet 1,000 mcg PO QAM furosemide 20 mg tablet 20 mg PO QAM ketoconazole 2 % shampoo 1 applic topical 3XWK omeprazole 20 mg capsule,delayed release 20 mg PO QAM tramadol 50 mg tablet 50 mg PO Q6H PRN pain alfuzosin 10 mg tablet,extended release 24 hr (Uroxatral) 10 mg PO DAILY potassium citrate 10 mEq (1,080 mg) tablet,extended release 10 meq PO DAILY hydrocortisone 2.5 % lotion 1 applic topical BID PRN Rash mometasone 0.1 % topical ointment 1 applic topical QAM PRN Itching sulfacetamide sodium 10 % topical cream 1 applic topical BID Continue as directed aspirin 81 mg tablet,delayed release 81 mg PO DAILY (unless directed otherwise by surgeon) alfuzosin 10 mg tablet,extended release 24 hr (Uroxatral) 10 mg PO DAILY STOP taking 24 hours before surgery ketoconazole 2 % shampoo 1 applic topical 3XWK hydrocortisone 2.5 % lotion 1 applic topical BID PRN Rash mometasone 0.1 % topical ointment 1 applic topical QAM PRN Itching sulfacetamide sodium 10 % topical cream 1 applic topical BID DO NOT take the morning of surgery cholecalciferol (vitamin D3) 50 mcg (2,000 unit) tablet (Vitamin D3) 2,000 unit PO QAM cyanocobalamin (vitamin B-12) 1,000 mcg tablet 1,000 mcg PO QAM furosemide 20 mg tablet 20 mg PO QAM potassium citrate 10 mEq (1,080 mg) tablet,extended release 10 meq PO DAILY Take morning of surgery With a small sip of water, OTHERWISE NOTHING TO EAT OR DRINK AFTER MIDNIGHT: atorvastatin 40 mg tablet 40 mg PO QAM omeprazole 20 mg capsule,delayed release 20 mg PO QAM tramadol 50 mg tablet 50 mg PO Q6H PRN pain(if needed) Take evening before surgery tramadol 50 mg tablet 50 mg PO Q6H PRN pain(if needed) Other Notes If you have any questions please call us at [phone] or [phone] or [phone] or [phone]
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
[~2022-03-25 09:18] MED LIST changes: +ACETAMINOPHEN 500 MG TAB PO SCH; -ATOR-24 PO; +BUPIVACAINE 0.5 % 5 MG/1 ML PF 10ML VIAL ONE; -CHOL100010 PO; -CHOL20009 PO; -CYCL10TA6 PO; +CeleBREX 200 MG CAP PO SCH; +EPINEPHrine INJ 1 MG/ML AMP ONE; +FAMOTIDINE 20 MG TAB PO SCH; -FRRS300 PO; -HYDC25 PO; +LR 500ML BOLUS, THEN 15ML/HR IV SCH; +LR 60ML/HR IV SCH; +METOCLOPRAMIDE HCL 10 MG TABLET PO SCH; -OXYB5TAB74 PO; -POTA1080 PO; -PRT40 PO; +ROPIVACAINE 0.5% 5 MG/ML 30 ML VIAL ONE; +TRANEXAMIC ACID 1,000 MG **IV Intra-op IV SCH; +ceFAZolin 2000MG 2,000 MG/15 ML SYR IV SCH
--- NOTE | 2022-03-25 11:13 | History & Physical Bridge Note ---
Date of Service March 25, 2022 History & Physical Bridge Note I have examined the patient, reviewed the History & Physical and in the interval since the performance of the History & Physical I have noted the following changes of clinical significance: no changes noted
[2022-03-25] MEDS ORDERED: BUPIVACAINE/EPINEPHRINE 0.25% 1:200,000 30 ML VIAL ONE (12:04)
[2022-03-25] MEDS ORDERED: SODIUM CHLORIDE 0.9% PF 50 ML VIAL ONE (12:04)
[2022-03-25] MEDS ORDERED: BUPIVACAINE LIPOSOME 1.3% 266 MG/20 ML VIAL ONE (12:04)
[2022-03-25] MEDS ORDERED: MIDAZOLAM HCL 1 MG/ML 2ML VIAL ONE (12:05)
[2022-03-25] MEDS ORDERED: fentaNYL citrate 100 MCG/2 ML VIAL ONE (12:05)
[2022-03-25] MEDS ORDERED: LIDOCAINE 2% MPF LOCAL 5 ML VIAL INFIL ONE (13:08)
[2022-03-25] MEDS ORDERED: PROPOFOL IV EMULSION 10 MG/ML 20 ML VIAL IV ONE ×2 (13:09→13:21)
[2022-03-25] MEDS ORDERED: NALOXONE HCL 0.4 MG/1 ML VIAL/CARP IV PRN ×2 (13:22→16:25)
[2022-03-25] MEDS ORDERED: ONDANSETRON INJ 2 MG/ML 2 ML VIAL IV PRN ×2 (13:22→16:25)
[2022-03-25] MEDS ORDERED: fentaNYL citrate 100 MCG/2 ML VIAL IV PRN (13:22)
[2022-03-25] MEDS ORDERED: ATROPINE SULFATE 0.1 MG/ML 10ML SYR IV PRN (13:22)
[2022-03-25] MEDS ORDERED: FLUMAZENIL 0.1 MG/1 ML 10 ML VIAL IV PRN (13:22)
[2022-03-25] MEDS ORDERED: HYDROmorphone INJ 1 MG/ML SYRINGE IV PRN (13:22)
[2022-03-25] MEDS ORDERED: PROMETHAZINE HCL 12.5 MG in SODIUM CHLORIDE 0.9% 50 ML IV PRN (13:22)
[2022-03-25] MEDS ORDERED: ePHEDrine sulfate 50 MG/ML AMP IV PRN (13:22)
[2022-03-25] MEDS ORDERED: ONDANSETRON INJ 2 MG/ML 2 ML VIAL ONE (13:35)
[2022-03-25] MEDS ORDERED: ePHEDrine sulfate 50 MG/ML SYR ONE (14:26)
--- NOTE | 2022-03-25 14:48 | Operative Report ---
PG Post Operative Report Pre & Post Diagnosis Operation Date: 03/25/22 12:30 Pre-Op Diagnosis: Left Knee Degenerative Joint Disease Post-Op Diagnosis: Left Knee Degenerative Joint Disease I identified the patient and participated in the time-out.: Yes Procedure Operation Date: 03/25/22 12:30 Actual Procedures p Left Total Knee Arthroplasty(Left) - Stone Duque MD Surgeon Stone Duque MD Warper Tender Maco Bailey PA-C Estimated Blood Loss 50 Findings Consistent with Post-Op Diagnosis Operative findings real advanced left knee DJD. Extensive grade 4 [id number]-zo-kbcy disease with primarily lateral compartment but also in the patellofemoral compartment. The medial side was more spared but did have some grade 2 and grade 3 changes. He had very sclerotic bone laterally. Had a valgus alignment to his knee. Moderate-sized joint effusion. The bone was fairly darkened in color. Fluids 1000 cc Specimens Left knee sent for pathology Drains None Anesthesia Type Spinal MAC Complications none Disposition Accompanied Patient To Recovery: No Indications Patient is an 81-year-old gentleman whose had a long history of left knee pain discomfort describes gotten worse over time. Is been through extensive conservative treatment the past which became less successful. He became more debilitated by his pain. He elected proceed with total knee arthroplasty. The patient was medically optimized preoperatively. Description of Procedure Operative implants consist of: 1. Biomet Vanguard size 65 left posterior stabilized femoral component. 2. Biomet size 79 tibial tray. 3. 12 mm posterior stabilized polyethylene insert. 4. 31 x 8 all Paller patella. The patient was taken the operating, identified, placed on the operating table supine position protectors were properly padded. IV antibiotics tried by anesthesia team. A spinal anesthetic and been implemented holding area. Ortez catheter was placed in sterile fashion. Left thigh tent was then placed in left lower extremities and prepped and draped in usual sterile fashion. The left leg was elevated exsanguinated with use of an Esmarch interspaced at 300 mmHg. An anterior approach to the left knee was then performed to longitudinal incision centered over the patella. Sharp dissection was carried through subcutaneous tissue down below the extensor mechanism. A medial parapatellar arthrotomy incision was made. Some subperiosteal dissection was carried out medially. The fat pad was resected from Neath patella tendon. Lateral patellofemoral ligament was released. Patella subluxated laterally and the knee was flexed. The osteophyte taken off distal femur. The ACL and PCL were then released from distal femur the tibia subluxated anteriorly. External tibial alignment jig was then placed in the anterior face of the tibia and adjusted 14 mm medially. Proximal tibial cut was made to remove about 4 to 5 mm of bone from the medial side. The tibia was then sized to a size 79. Attention drawn the femur. The distal femur examined the sharp drill. Intramedullary guide guide was placed. Distal femoral cutting block for the 5 degree valgus cut was placed. Distal femoral cut was made to take an additional 3 mm bone off distal femur. The femur was then sized to a size 65. The AP cutting block was pinned parallel to the epicondylar axis which was 5 degrees of external rotation. The anterior cut, anterior chamfer, posterior cut, posterior chamfer cuts were made. The box cutting guide was placed in a just slight lateral box cut was made. The knee was flexed. The remnants of the medial and lateral menisci were excised. The osteophytes were taken off the posterior aspect the femur. I did release the popliteus in the order to equalize the flexion gap. Trial femoral component was placed. Tibial tray was pinned in maximum external rotation and the drill and s tem punch were used to create defect in proximal tibia for the tibial tray. Knee was then trialed and the 12 mm insert fit most appropriately. Attention drawn the patella. The patella was cleaned of all soft tissues. Patella thickness measured 23 mm in thickness was cut down to 15. It was sized to a size 31 patella. The lug holes were drilled for the 31 patella. The lateral osteophyte was removed. Patella button was placed. Knee was taken through range of motion and the patella tracked nicely with no thumbs test. Attention drawn to place the permanent components. Nupathe all trial components were removed. Bone plug was placed in the distal femur limit blood loss. Double batch Palacos G cement was mixed. Biomet Vanguard size 65 left posterior stabilized femoral component, size 79 tibial tray, 12 mm posterior stabilized polyethylene insert, and a 31 x 8 all polypatella were then placed. The knee was brought out in full extension total cement hardened. Final cement check was then performed. Pericapsular tissues were injected with total 100 cc of combination of 20 of Exparel, 30 cc normal saline, 50 cc of quarter percent Marcaine with epinephrine. Patient did receive 1 g tranexamic acid. Was then let down for final turn time 52 minutes. Hemostasis assured use electrocautery. Extensor mechanism closed with combination 1 PDS suture #1 Vicryl suture in [id number] fashion. Extensor mechanism checked found to be intact the subcutaneous tissues then closed with 2 Dexon suture in buried erupted fashion skin was closed skin jim. Leg was then cleaned and dried a sterile dressing was Xeroform, 4 fours, sterile cast padding, Antonio bandage were applied. Patient then transferred to the recovery room in stable condition. Patient tolerated procedure well and there were no complications. Maco Bailey, my physician trade sales assistant, was present for the entire procedure. His assistance was essential and required for appropriate patient positioning, prepping and draping, surgical exposure, performing the technical details of the operation, placement the implants, closure of the wound, and placement of the sterile bandage. I attest to the content of the Intraoperative Record and any orders documented therein. Any exceptions are noted below.
--- NOTE | 2022-03-25 15:09 | XRay Report ---
TWO VIEWS LEFT KNEE CLINICAL HISTORY: Postoperative examination. FINDINGS: AP and crosstable lateral portable views of the left knee are obtained. A left knee arthrop lasty is in near anatomic alignment. There has been undersurface remodeling of the patella. No acute fracture is seen. There are expected postoperative changes around the knee including skin clips, soft tissue edema, and subcutaneous gas. IMPRESSION: Expected postoperative changes status post left knee arthroplasty. No acute fracture is s een. ACT 112: Negative or not required by law. Electronically signed by: Dustin Figueroa M.D. 03/25/2022 3:08 PM
--- NOTE | 2022-03-25 15:14 | Anesthesiology Progress Note ---
Date of Service March 25, 2022 Anesthesia Post Procedure Vital Signs Vital Signs: Temp Pulse Resp BP Pulse Ox O2 Del Method O2 Flow Rate 03/25/22 15:05 60 16 128/65 98 Room Air 03/25/22 14:55 60 18 117/54 L 100 Oxymask 5 03/25/22 14:45 36.1 C L 65 18 107/52 L 100 Oxymask 5 03/25/22 09:42 36.9 C 86 20 177/95 H 96 Room Air Transfer of Care Handoff Completed per policy Notes Mental Status: alert / awake / arousable Patient Amnestic to Procedure: Yes Nausea / Vomiting: adequately controlled Pain: adequately controlled Airway Patency, RR, SpO2: stable & adequate BP & HR: stable & adequate Hydration State: stable & adequate Neuraxial Anesthesia: was administered and sensory block is resolving Anesthetic Complications: no major complications apparent
[2022-03-25] MEDS ORDERED: SODIUM CHLORIDE 0.9% 1000ML 1,000 ML IV SCH (16:25)
[2022-03-25] MEDS ORDERED: MAGNESIUM HYDROXIDE SUSP 30 ML UDC PO PRN (16:25)
[2022-03-25] MEDS ORDERED: MOMETASONE FUROATE 0.1% OINT 15 GM TUBE EXT PRN (16:25)
[2022-03-25] MEDS ORDERED: TAMSULOSIN HCL 0.4 MG CAP PO PRN (16:25)
[2022-03-25] MEDS ORDERED: METOCLOPRAMIDE HCL INJ 5 MG/ML 2 ML VIAL IV PRN (16:25)
[2022-03-25] MEDS ORDERED: bisacodyL 10 MG SUPP PR PRN (16:25)
[2022-03-25] MEDS ORDERED: HYDROCORTISONE 2.5% TOP PRN (16:25)
[2022-03-25] MEDS ORDERED: NO NSAIDS SCH (16:25)
[2022-03-25] MEDS ORDERED: ALUMINUM/MAGNESIUM SUSP 30 ML UDC PO PRN (16:25)
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
[2022-03-25] MEDS: ASCORBIC ACID 500 MG TAB PO SCH (17:43)
[2022-03-25] MEDS: oxyCODONE HCL IR 5 MG TAB (IMMEDIATE RELEASE) PO PRN (19:35)
[2022-03-25] MEDS: SENNA 8.6 MG TAB PO SCH (20:25)
[2022-03-25] MEDS: DOCUSATE SODIUM 100 MG CAP PO SCH (20:26)
[2022-03-25] MEDS: ASPIRIN 81 MG ECTAB PO SCH (20:26)
[2022-03-25] MEDS: ceFAZolin 2000MG 2,000 MG/15 ML SYR IV SCH (20:30)
[2022-03-25] MEDS ORDERED: TRANEXAMIC ACID / 0.7% NACL 1,000 MG/100 ML BAG IV SCH (20:45)
[2022-03-25] MEDS: ACETAMINOPHEN 500 MG TAB PO SCH (21:59)
[2022-03-26] MEDS: oxyCODONE HCL IR 5 MG TAB (IMMEDIATE RELEASE) PO PRN ×4 (02:00→17:55)
[2022-03-26] MEDS: ceFAZolin 2000MG 2,000 MG/15 ML SYR IV SCH (04:18)
[2022-03-26] MEDS: HYDROmorphone INJ 0.5 MG/0.5 ML SYR IV PRN ×3 (04:19→23:08)
[2022-03-26] MEDS: ACETAMINOPHEN 500 MG TAB PO SCH ×3 (05:54→21:27)
[2022-03-26 07:48] LABS: Hematocrit (blood only) 32.4 % (40.1-51.0); Hemoglobin 10.6 g/dl (14.0-18.0); Mean Corpuscular Hemoglobin 29.9 pg (25.0-34.0); Mean Corpuscular Hgb Conc 32.7 g/dL (32.0-36.0); Mean Corpuscular Volume 91.5 fL (80.0-100.0); Mean Platelet Volume 9.2 fL (9.4-12.4); Platelet Count 172 K/uL (130-400); RDW Coefficient of Variation 14.5 % (11.5-14.5); RDW Standard Deviation 48.6 fL (36.4-46.3); Red Blood Count 3.54 M/uL (4.63-6.08); White Blood Count 3.88 K/ul (4.8-10.8)
[2022-03-26 08:08] LABS: BUN Creatinine Ratio 15.3 (10-20); Calcium 8.4 mg/dl (8.5-10.1); Creatinine Clr Calc Pharmacy 58.2 ml/min; Est GFR (African American) 71.8 ml/min; Est GFR (Non-African American) 61.9 ml/min; Potassium 4.3 mmol/L (3.5-5.1)
[2022-03-26] MEDS: PANTOprazole 40 MG TAB PO SCH (08:26)
[2022-03-26] MEDS: ASCORBIC ACID 500 MG TAB PO SCH ×2 (08:26→17:56)
[2022-03-26] MEDS: MULTIVITAMIN TAB PO SCH (08:26)
[2022-03-26] MEDS: DOCUSATE SODIUM 100 MG CAP PO SCH ×2 (08:26→20:33)
[2022-03-26] MEDS: POLYETHYLENE (MIRALAX) 17 GM PACK PO SCH (08:26)
[2022-03-26] MEDS: CYANOCOBALAMIN (B-12) 500 MCG TABLET PO SCH (08:26)
[2022-03-26] MEDS: ASPIRIN 81 MG ECTAB PO SCH ×2 (08:26→20:30)
[2022-03-26] MEDS: CHOLECALCIFEROL 1,000 UNITS 25 MCG TAB PO SCH (08:27)
[2022-03-26] MEDS ORDERED: ALFUZOSIN HCL 10 MG TAB PO SCH ×2 (08:30→22:00)
[2022-03-26] MEDS ORDERED: ATORVASTATIN 40 MG TAB PO SCH ×2 (09:00→21:00)
[2022-03-26] MEDS ORDERED: POLYETHYLENE (MIRALAX) 17 GM PACK PO SCH (09:00)
[2022-03-26] MEDS ORDERED: FUROSEMIDE 20 MG TAB PO SCH (09:00)
[2022-03-26] MEDS ORDERED: Nursing to Pharmacy Communication SCH (09:45)
--- NOTE | 2022-03-26 11:43 | Hospitalist Progress Note ---
Date of Service March 26, 2022 Assessment & Plan (1) S/P total knee arthroplasty: Plan: S/P Left Total Knee Arthroplasty performed by Dr. Duque No post complication Continue pain control PT/OT eval- continue weight bearing as tolerated as per ortho Hgb 10.6 today Continue monitor CBC Fall precaution (2) HTN (hypertension): Plan: BP elevated Possible related to pain Continue antihypertensive including furosemide (3) Pacemaker: Plan: s/p second degree AV block and bradycardia, stable (4) CKD (chronic kidney disease), stage III: Plan: Creatinine stable at 1.11 (5) Hx of prostatic malignancy: Plan: - Hx of such, stable (6) GIST (gastrointestinal stromal tumor), malignant: Plan: - Hx of such, resolved (7) Anemia: Plan: Hgb 10.6 Continue monitor CBC DVT ppx:- teds, scds, asa 81 mg BID CODE: Full Disposition as per ortho Thank you for involving us in the care of Mr White. Please do not hesitate to call with questions or concerns. At this time medicine service will follow along. Admission and Anticipated Discharge Date Admission Date: March 25, 2022 Subjective Pt was seen and examined for postop follow up Lying in bed with no acute distress Pt said that pain he is having a lot of pain in left knee He said that he walked with therapy today Denies any chest pain, palpitation, dizziness and SOB Review of Systems Review of Systems: All systems reviewed & are unremarkable except as noted in Subjective Physical Exam Physical Exam: General- No acute distress Head- atraumatic Eyes- PERRL, EOMI, ENT- oropharynx clear Neck- supple, no JVD Lungs- clear to auscultation Heart- regular rhythm; no murmur Abdomen- normal bowel sounds, soft, nontender Extremities- no calf tenderness, +lelf LE pain, +dressing in Left knee Neuro- alert, oriented x 3; PERRL, EOMI; no facial palsy; no dysarthria Skin- warm & dry Results & Data Results & Data ([facility]) Vital Signs (Past 12 Hours) Vital Signs Temp Pulse Resp BP BP Pulse Ox O2 Del Method 03/26/22 08:03 37.5 C 64 16 159/82 H 96 Room Air 03/26/22 04:12 37.2 C 73 18 156/80 H 94 Room Air
--- NOTE | 2022-03-26 16:32 | Progress Notes ---
DATE OF SERVICE: 03/26/2022. SUBJECTIVE: An 81-year-old gentleman postoperative day 1 from left knee replacement. He is doing ok ay. Having bouts of pretty significant pain requiring IV Dilaudid at times. Currently, he is pretty comfortable lying in bed. No chest pain or shortness of breath. Not feeling dizzy or lightheaded. OBJECTIVE: VITAL SIGNS: Temperature 38.3. Vital signs are stable. GENERAL: Shows a pleasant, elderly male. He is sitting up in bed. He is awake, alert, but seems a little bit groggy. LUNGS: Clear to auscultation. HEART: Regular rate and rhythm. ABDOMEN: Soft, nontender, nondistended. EXTREMITIES: Grossly neurovascularly intact except as follows. Examination of the left leg reveals the leg to be well aligned. Dressing is clean, dry and intact. He can dorsiflex and plantarflex his foot appropriately. He is neurologically intact. LABORATORY DATA: Hemoglobin 10.6. Hematocrit 32.4. Electrolytes are stable. ASSESSMENT: An 81-year-old gentleman, postoperative day 1 from a left knee replacement, doing okay. He is having bouts of pretty significant pain. He seems a little bit sedated and may be related to his low-grade fever from poor inspiration. PLAN: 1. DVT prophylaxis including thigh-high TEDs, SCDs, and aspirin twice a day. 2. PT/OT. He can weight bear as tolerated. Left total knee protocol. 3. Pain control, doing okay with current pain regimen. We are going to try and step back on some of the narcotics to avoid his slight degree of lethargy. 4. Disposition: He is planning to be discharged to home with some home health with his 's radha fenton as well as his son. We are going to keep him overnight for pain control and see how he does to appiah in therapy. Job ID: [id number]
[2022-03-26] MEDS: SENNA 8.6 MG TAB PO SCH (20:30)
[2022-03-27] MEDS: ACETAMINOPHEN 500 MG TAB PO SCH (06:10)
[2022-03-27] MEDS: oxyCODONE HCL IR 5 MG TAB (IMMEDIATE RELEASE) PO PRN ×2 (06:12→12:31)
[2022-03-27] MEDS: ASPIRIN 81 MG ECTAB PO SCH (07:47)
[2022-03-27] MEDS: MULTIVITAMIN TAB PO SCH (07:47)
[2022-03-27] MEDS: DOCUSATE SODIUM 100 MG CAP PO SCH (07:47)
[2022-03-27] MEDS: ASCORBIC ACID 500 MG TAB PO SCH (07:47)
[2022-03-27] MEDS: CHOLECALCIFEROL 1,000 UNITS 25 MCG TAB PO SCH (07:47)
[2022-03-27] MEDS: PANTOprazole 40 MG TAB PO SCH (07:47)
[2022-03-27] MEDS: POLYETHYLENE (MIRALAX) 17 GM PACK PO SCH (07:47)
[2022-03-27] MEDS: CYANOCOBALAMIN (B-12) 500 MCG TABLET PO SCH (07:47)
[2022-03-27 07:53] LABS: Hematocrit (blood only) 29.6 % (40.1-51.0); Hemoglobin 9.7 g/dl (14.0-18.0); Mean Corpuscular Hemoglobin 29.7 pg (25.0-34.0); Mean Corpuscular Hgb Conc 32.8 g/dL (32.0-36.0); Mean Corpuscular Volume 90.5 fL (80.0-100.0); Mean Platelet Volume 9.6 fL (9.4-12.4); Platelet Count 139 K/uL (130-400); RDW Coefficient of Variation 14.7 % (11.5-14.5); RDW Standard Deviation 48.3 fL (36.4-46.3); Red Blood Count 3.27 M/uL (4.63-6.08); White Blood Count 5.39 K/ul (4.8-10.8)
--- NOTE | 2022-03-27 08:20 | Progress Notes ---
DATE OF SERVICE: 02/18/2022. SUBJECTIVE: An 81-year-old gentleman, postoperative day 2 from a left knee replacement. Doing a bit better this morning. Pain is better. No chest pain or shortness of breath. Not feeling dizzy or l ightheaded. OBJECTIVE: VITAL SIGNS: Temperature 37.1. Vital signs are stable. GENERAL: Shows a pleasant, elderly male. He is awake, alert and oriented. Seems less groggy this m orning. LUNGS: Clear to auscultation. HEART: Regular rate and rhythm. ABDOMEN: Soft, nontender, nondistended. EXTREMITIES: Grossly neurovascularly intact except as follows: Examination of the left lower extremity reveals the dressing to be clean, dry and intact. There is n o drainage. Legs are well aligned. He can dorsiflex and plantarflex his foot appropriately. ASSESSMENT: An 81-year-old gentleman, postoperative day 2 from a left knee replacement, doing pretty well. Pain is controlled. Seems to be doing better this morning. PLAN: 1. DVT prophylaxis includes thigh-high TEDs, SCDs, and aspirin twice a day. 2. PT, OT, weightbear as tolerated. Left total knee protocol. 3. Pain control, doing okay with current pain regimen. 4. Disposition: Plan to discharge to home with some home health and his and son's assistance i f he does okay in therapy today. Job ID: [id number]
--- NOTE | 2022-03-27 14:26 | Hospitalist Progress Note ---
Date of Service March 27, 2022 Assessment & Plan (1) S/P total knee arthroplasty: Plan: POD#2 Left Total Knee Arthroplasty performed by Dr. Duque Activity and wound care orders as per ortho Pain control with bowel regimen PT/OT Monitor H/H for acute blood loss anemia and transfuse blood products PRN EBL 50cc Acute blood loss anemia Preop Hgb 12.5 Hgb 9.7 today, no indication for transfusion (2) HTN (hypertension): Plan: BP controlled, continue home furosemide (3) Pacemaker: Plan: s/p second degree AV block and bradycardia, stable (4) CKD (chronic kidney disease), stage III: Plan: Creatinine remained stable (5) Hx of prostatic malignancy: Plan: Hx of such, stable (6) GIST (gastrointestinal stromal tumor), malignant: Plan: Hx of such, resolved DVT prophylaxis: ASA 81 mg twice daily as per Ortho Admission and Anticipated Discharge Date Admission Date: March 25, 2022 Supervising Physician Co-Signing Physician Notes Pt was seen and examined. Agreed with Sonia VALERA exam, assessment and plan. S/P Left Total Knee Arthroplasty performed by Dr. Duque. No post complication. Continue pain control. hgb 10.7 today. PT/OT eval- continue weight bearing as tolerated as per ortho. Fall precaution MD Gabo Subjective Follow up for medical management, s/p left TKA Patient seen and examined. Eager to be discharged home. Working well with PT and OT. Pain controlled. Denies chest pain shortness of breath. No abdominal pain or nausea.No BM but pa ssing flatus. Urinating without difficulty. Review of Systems Review of Systems: ROS per HPI, all other systems reviewed and negative Physical Exam Constitutional: WD/WN, vitals as above Respiratory: normal respiratory effort, lungs clear to auscultation Cardiovascular: Rate/Rhythm: regular rate and regular rhythm Vessels: normal peripheral pulses Extremities: no edema Gastrointestinal (Abdomen): Percussion/Palpation: abdomen soft; abdomen nontender Musculoskeletal: s/p left knee surgery, dressing CDI, CSM checks intact to LLE Skin: no rashes, warm and dry Neurologic: no focal motor deficits Psychiatric: A+Ox3, euthymic affect Results & Data Results & Data ([facility]) Vital Signs (Past 12 Hours) Vital Signs Temp Pulse Resp BP BP Pulse Ox O2 Del Method 03/27/22 10:55 37.1 C 67 18 127/71 98 Room Air 03/27/22 10:09 37.1 C 70 18 158/77 H 127/68 96 03/27/22 07:32 37.1 C 70 18 127/68 96 Room Air 03/27/22 07:10 37.1 C 74 16 146/74 H 94 Room Air Laboratory Results Short CBC 03/27/22 Range/Units 07:24 WBC 5.39 (4.8-10.8) K/ul Hgb 9.7 L (14.0-18.0) g/dl Hct 29.6 L (40.1-51.0) % Plt Count 139 (130-400) K/uL
--- NOTE | 2022-03-29 14:55 | Discharge Summary ---
Date of Service March 29, 2022 Discharge Data Consultations 03/25/22 16:25 Consult Hospitalist Routine Procedures Performed Operation Date: 03/25/22 12:30 Actual Procedures p Left Total Knee Arthroplasty(Left) - Stone Duque MD Hospital Course (1) Status post total left knee replacement: This is a 81 year old patient admitted on 03/25/22 and underwent total knee arthroplasty. He tolerated the procedure well and there were no complications. Transferred to the PACU post op and later to the orthopedic floor for further care. He was given ancef for antibiotic prophylaxis. He was also given RAMU stockings, SCDs, and aspirin for DVT prophylaxis. Hemoglobin, hematocrit, and vital signs were monitored during his hospital stay and remained stable. Did not require any blood transfusions. There were no complications during his hospital stay. By post op day #2 the patient was tolerating a regular diet, pain was reasonably controlled with oral pain medicine, and he was participating in physical therapy. On post op day #2 the patient was discharged home and set up with home health care. He was given printed discharge instructions including prescriptions for extra strength tylenol, aspirin, zofran, oxycodone, flomax, and senokot. Continue physical therapy, weight bearing as tolerated. Continue RAMU stockings. Follow up approximately 2 weeks post op or sooner if there are problems or concerns. Coding Level of Care Code None Diagnoses Status post total left knee replacement Z96.652
== END 2022-03-27 14:07 | disposition home health service (06) ==
LOC: ASU 09:18 → 3E 09:18